=== PATIENT | female | born 1965 | race Caucasian/White ===

== ENCOUNTER 2024-04-23 15:03 | Inpatient (IN) | payer OTHER, SELFPAY ==
[2024-04-23] VITALS (13 sets, daily range): BP systolic 101–157; BP diastolic 65–89
--- NOTE | 2024-04-23 11:02 | ED.GENMED ---
History of Present Illness
General
Chief Complaint: Abdominal Symptoms
Source: patient
Exam Limitations: none
Time Seen by Provider: 04/23/24 10:53
History of Present Illness
History of Present Illness:
58yoF with a history of hypertension, hyperlipidemia, and recurrent diverticulitis s/p colon resection in 2010 presenting for evaluation of vomiting. Symptoms have been ongoing for the past 3 days. She has been unable to tolerate any p.o. intake
since her symptoms began. She denies any precipitating event, suspicious food intake, recent travel, or sick contacts. She has vomited 4 times so far today. She feels very dehydrated, lightheaded, and weak. She states she can feel her heart
beating in her chest but denies any chest pain or shortness of breath. She has only urinated once today and it looked very dark. No associated fevers, hematemesis, diarrhea, or abdominal pain.
Past History
Past History
ED Past Medical History: HTN and Hypercholesterolemia
ED Past Surgical History: Negative Cardiac
Social History
Tobacco: Smoker
Alcohol: Occasional
Drug: None
Personal:
Living: with family
Employment: Employed
Family History
Family History: Other (n/c)
Phy Exam
General Physical Exam
General Presentation: well appearing and no apparent distress
General age: appears stated age
General Skin: warm and dry
General Habitus: normal
General Mental: alert
ENT Exam
ENT Exam: normocephalic
Cardiovascular Exam
Cardiovascular Exam: regular rate/rhythm and no murmur
Pulmonary Exam
Pulmonary Exam: lungs clear, no respiratory distress, no rales, no crackles and no rhonchi
Gastrointestinal Exam
Gastrointestinal Exam: non tender, soft and non distended
Neurological Exam
Neurological Exam: alert
Dharmesh Coma Scale
Eye Opening: Spontaneous
Verbal Response: Oriented
Motor Response: Obeys Commands
GCS Total Score: 15
Skin Exam
Skin Exam: normal color and warm/dry
Psychiatric Exam
Psychiatric Exam: normal mood/affect
Course
Orders/Labs/Results
Orders:
Orders
04/23/24 11:01
0.9% Sodium Chloride 1000 ml [Nss] 1,000 ml IV BOLUS
Ondansetron Injectable [Zofran] 4 mg IV NOW STA
04/23/24 11:02
Electrocardiogram (*1) Urgent
Reason for Study: Palpitations
EKG- Treatment ONCE
04/23/24 11:12
Complete Blood Count/With Diff Urgent
Comprehensive Metabolic Panel Urgent
Hepatitis A IgM Antibody Urgent
Comment: ADD ON
Lipase Urgent
Magnesium Urgent
Troponin I Urgent
04/23/24 11:37
0.9% Sodium Chloride 1000 ml [Nss] 1,000 ml IV BOLUS
Potassium Chloride [KCl] 40 meq PO NOW STA
US Abdomen Complete/Upper Urgent
Comment:
Reason For Exam: vomiting, transaminitis
04/23/24 11:41
Add On- LAB Urgent
Tests Added?: Hep A IgM
04/23/24 11:51
COVID-19 Antigen Urgent
Source: Nasal Swab
Influenza A+B Rapid Molecular Urgent
MATT Source: Nasal Swab
Specimen Description:
04/23/24 14:15
Alcohol Routine
Urine Drug Abuse Screen Routine
Abnormal Lab Results
04/23/24
11:12
WBC 11.1 H 10^3/uL
(4.8-10.8)
RBC 4.03 L 10^6/uL
(4.20-5.40)
MCH 33.5 H pg
(27.0-31.0)
Abs Immat Gran (auto) 0.1 H 10^3/uL
(0-0.05)
Absolute Neuts (auto) 9.1 H 10^3/uL
(1.4-6.5)
Absolute Lymphs (auto) 0.9 L 10^3/uL
(1.2-3.4)
Absolute Monos (auto) 1.1 H 10^3/uL
(0.1-0.6)
Neutrophils % 81.7 H %
(42.2-75.2)
Lymphocytes % 7.8 L %
(20.5-51.1)
Monocytes % 9.6 H %
(1.7-9.3)
Sodium 131 L mmol/L
(135-145)
Potassium 3.3 L mmol/L
(3.5-5.1)
Chloride 80 L mmol/L
(98-107)
BUN 43 H mg/dl
(7-17)
Creatinine 1.1 H mg/dL
(0.6-1.0)
Glucose 121 H mg/dl
(70-99)
Total Bilirubin 3.7 H mg/dl
(0.2-1.3)
AST 190 H U/L
(14-36)
ALT 143 H U/L
(0-35)
Albumin 5.5 H g/dl
(3.5-5.0)
Lipase > 4000 H* U/L
(23-300)
04/23/24 11:12
04/23/24 11:12
Vital Signs
Initial and Last Documented VS:
Initial Vital Signs
Temp Pulse Resp BP Pulse Ox
98.4 F 85 18 153/89 97
04/23/24 10:23 04/23/24 10:23 04/23/24 10:23 04/23/24 10:23 04/23/24 10:23
Last Documented Vital Signs
Temp Pulse Resp BP Pulse Ox
98.4 F 77 18 112/65 99
02/19/25 10:23 04/23/24 13:15 04/23/24 13:15 04/23/24 13:11 04/23/24 13:15
MDM/Problems Addressed
Differential Diagnosis Includes:
58yoF here with n/v x 3 days. Also c/o feeling weak and lightheaded. No abdominal pain, diarrhea, or fevers. She is mildly hypertensive with otherwise normal vitals. She is non-toxic appearing. Abdominal exam is benign. Differential diagnosis
includes but is not limited to: viral illness, gastroenteritis, dehydration, MARELY
Initial ED plan: Check abdominal labs, magnesium, and troponin/EKG. Defer imaging given benign exam. IV Zofran and fluid bolus for symptoms.
*EKG
Interpreted by ED Provider?: Yes
EKG Intrepretation Date: 04/23/24
Heart Rate: 78
Rate: normal
Rhythm: sinus and PVC's
[place]: normal axis
Interval: other (QTc 487)
QRS Pattern: normal QRS
Ischemia: no ischemia
*Critical Care Note
Total Time (30-74mins, 75-104mins- exclusive of procedures): Not Applicable
Update Note
Update Note:
Labs reveal a lipase greater than 4000. Total bilirubin 3.7, AST 190, and ALT 143. Labs also show a potassium of 3.3 which was replaced, sodium 131, and chloride 80. Creatinine 1.1. Upper abdominal ultrasound obtained which is negative for
cholelithiasis. Pancreas not visualized due to bowel gas. She does report a history of alcohol abuse although states her last drink was 02/10/24. Additional fluid bolus ordered and patient admitted for further management.
ED Attending Note
-
Portions of this chart may have been created with voice recognition software.� Occasional wrong word or��sound alike� substitutions may have occurred due to the inherent limitations of voice recognition software.
Discharge Plan
Departure
Patient Disposition: Admit
Date of Disposition: 04/23/24
Time of Disposition: 13:15
Presentation/result/management discussed w/ accepting MD/DO: Hospitalist
Discharge Problem:
Acute pancreatitis, Nausea and vomiting, Transaminitis
Prescriptions:
No Action
atorvastatin [Lipitor] 40 mg Tablet
40 mg PO DAILY
lisinopril 20 mg Tablet
20 mg PO DAILY
cyanocobalamin (vitamin B-12) 1,000 mcg Tablet
1,000 mcg PO DAILY
Theragen Tablet
1 tab PO DAILY
propranolol 20 mg Tablet
20 mg PO DAILY
Patient Comments:
04/23/24-PATIENT DID NOT KNOW THE DIRECTION WERE BID, SHE ONLY BEEN TAKING IT DAILY
escitalopram oxalate [Lexapro] 10 mg Tablet
10 mg PO DAILY
cholecalciferol (vitamin D3) [Vitamin D3] 25 mcg (1,000 unit) Tablet
25 mcg PO DAILY
magnesium oxide 400 mg magnesium Tablet
400 mg PO DAILY
Referrals:
Charisse Pérez CRNP [Family Provider] -
Interventions
Interventions:
*Risk Screen - Suicide Last Done: 04/23/24 10:23
*General Assessment Last Done: 04/23/24 10:23
*Neglect/Abuse Screening Last Done: 04/23/24 10:23
*ED COVID-19 Vaccine History Last Done: 04/23/24 11:18
GI-Ndnqpn-Vdjvcigrza Assessment Last Done: 04/23/24 11:18
Discharge Date and Time
Print Language: OCCITAN
[2024-04-23] MEDS: NSS 1000 IV ×2 (11:13→11:46)
[2024-04-23] MEDS: ZOFRAN 4 MG IV (11:13)
[2024-04-23 11:22] LABS: % Basophils 0.3 % (0-2); % Eosinophils 0.1 % (0-6); % Immature Granulocytes 0.5 % (0-0.5); % Lymphocytes 7.8 % (20.5-51.1); % Monocytes 9.6 % (1.7-9.3); % Neutrophils 81.7 % (42.2-75.2); Absolute Immature Granulocytes 0.1 10^3/uL (0-0.05); Absolute Lymphocytes 0.9 10^3/uL (1.2-3.4); Absolute Monocytes 1.1 10^3/uL (0.1-0.6); Absolute Neutrophils 9.1 10^3/uL (1.4-6.5); Hematocrit 37.9 % (37.0-47.0); Hemoglobin 13.5 g/dL (12.0-16.0); Mean Corp Hgb Conc. 35.6 g/dL (33.0-37.0); Mean Corpuscular Hgb 33.5 pg (27.0-31.0); Mean Platelet Volume 9.8 fL (7.4-10.4); Nucleated Red Blood Cells % 0 %; Platelet Count 154 10^3/uL (130-400); Red Blood Cell Count 4.03 10^6/uL (4.20-5.40); Red Cell Dist. Width 12.3 % (11.5-14.5); White Blood Cell Count 11.1 10^3/uL (4.8-10.8)
[2024-04-23 11:35] LABS: ALT (SGPT) 143 U/L (0-35); AST (SGOT) 190 U/L (14-36); Albumin 5.5 g/dl (3.5-5.0); Alkaline Phosphatase 97 U/L (38-126); Blood Urea Nitrogen 43 mg/dl (7-17); Calcium 8.5 mg/dl (8.4-10.2); Carbon Dioxide 23 mmol/L (22-30); Chloride 80 mmol/L (98-107); Glucose 121 mg/dl (70-99); Magnesium 1.6 mg/dl (1.6-2.3); Potassium 3.3 mmol/L (3.5-5.1); Sodium 131 mmol/L (135-145); Total Bilirubin 3.7 mg/dl (0.2-1.3); Total Protein 7.5 g/dl (6.3-8.2); eGFR 57.88
[2024-04-23] MEDS: KCL 40 MEQ PO (11:46)
[2024-04-23 11:51] LABS: Troponin I < 0.012 ng/ml
[2024-04-23 12:15] LABS: COVID-19 Antigen Negative (Negative)
[2024-04-23 12:48] LABS: Lipase > 4000 U/L (23-300)
--- NOTE | 2024-04-23 14:44 | HPS.HSE ---
Family Physician
-
Family Physician: LATASHA Lux
Chief Complaint
-
Persistent nausea and vomiting
History of Present Illness
Patient is a 58-year-old female with history of hypertension and dyslipidemia who presents with rather acute onset of nausea and vomiting. Denies hematemesis. Patient denies any abdominal pain, diarrhea. She denies any fever or sick contacts.
Patient with history of alcohol use disorder who states being sober since February 10, 2024. She attends . She was prescribed Antabuse, although stopped taking it 2 weeks prior to presentation in addition patient denies any history of
hepatobiliary disease in the past. She complains of feeling generally weak, shaky, dehydrated with palpitations.
Medical History
Past Medical History
Past Medical History: Reports HTN and Hypercholesterolemia; Denies CAD, Cancer, CHF, COPD or NIDDM
Past Surgical History: Reports None
Social History
Tobacco: Smoker
Alcohol: Former
Drug: None
Personal:
Living: With Family
Family History
Family History: Not pertinent
Allergies / Home Medications
Allergies reflects when Allergies were last updated in [facility].
Home Medications with original date entered in [facility]
Allergy/Medication List:
Allergies
Allergy/AdvReac Type Severity Reaction Status Date / Time
No Known Allergies Allergy Verified 04/23/24 10:22
Home Medications
atorvastatin 40 mg tablet (Lipitor) 40 mg PO DAILY 04/23/24
cholecalciferol (vitamin D3) 25 mcg (1,000 unit) tablet (Vitamin D3) 25 mcg PO DAILY 04/23/24
cyanocobalamin (vitamin B-12) 1,000 mcg tablet 1,000 mcg PO DAILY 04/23/24
escitalopram oxalate 10 mg tablet (Lexapro) 10 mg PO DAILY 04/23/24
lisinopril 20 mg tablet 20 mg PO DAILY 04/23/24
magnesium oxide 400 mg PO DAILY 04/23/24
propranolol 20 mg tablet 20 mg PO DAILY 04/23/24
therapeutic multivitamin 1 tab PO DAILY 04/23/24
Review of Systems
-
A 12 point ROS was completed and negative except as noted: Yes
Physical Exam
Vital Signs
Vital Signs
Temp Pulse Resp BP Pulse Ox
98.4 F 77 18 112/65 99
04/23/24 10:23 04/23/24 13:15 04/23/24 13:15 04/23/24 13:11 04/23/24 13:15
Physical Exam
General: Well Developed, Well Nourished and No Apparent Distress
HEENT: NormoCephalic, Moist mucous membranes and Atraumatic
Respiratory: Clear
Cardiac: S1/S2 and Regular Rhythm; No Murmur or Rub
GI: Soft, Non Tender, Non Distended and Normal Bowel Sounds; No Organomegaly
Rectal: Deferred by Provider
Musculoskeletal: No Clubbing, No Cyanosis and No Edema
Skin: No Rash
Neuro: Awake, Alert, Oriented, AO x 3, Nonfocal/grossly intact and Other (Mild bilateral nonintentional upper extremity tremor)
Laboratory Results
-
04/23/24 11:12
04/23/24 11:12
Laboratory Results
Total Bilirubin 3.7 mg/dl (0.2-1.3) H 04/23/24 11:12
AST 190 U/L (14-36) H 04/23/24 11:12
ALT 143 U/L (0-35) H 04/23/24 11:12
Alkaline Phosphatase 97 U/L (38-126) 04/23/24 11:12
Troponin I < 0.012 ng/ml 04/23/24 11:12
Lipase > 4000 U/L (23-300) H* 04/23/24 11:12
Impression/Plan
-
IMPRESSION:
58 years old female with history of hypertension dyslipidemia, alcohol use disorder who states being sober from February 2024 presents with rather acute onset of nausea, vomiting.
Elevated LFTs mixed pattern with hyperbilirubinemia and elevated transaminases.
Elevated lipase
Hypovolemic hyponatremia
Elevated anion gap metabolic acidosis with contraction alkalosis
Hypokalemia
Palpitations
Other conditions:
Essential hypertension
Dyslipidemia (
PLAN:
Acute onset of nausea and vomiting.
Elevated LFTs mixed pattern.
Elevated lipase with no abdominal pain suggesting against acute pancreatitis.
Ultrasound of the abdomen with fatty liver, although with no evidence of acute gallbladder disease or biliary obstruction.
Patient claims being sober since February 2024
Differential diagnosis acute hepatitis including viral, less likely alcohol induced given plan sobriety, acute cholecystitis, less likely biliary colic with no evidence of pain upon presentation, acute gallstone pancreatitis
Follow LFT.
IV hydration
Clear liquid diet
If remains elevated, consider further imaging including MRI/MRCP.
GI consultation
Hold statin
Dehydration with increased anion gap metabolic acidosis and contraction alkalosis
Check serum acetone level
Hypovolemic hyponatremia. Hypokalemia
Clear liquid diet
Lactated Ringers
Replete potassium
Check magnesium
Follow BMP and replete electrolytes closely
Alcohol use disorder baseline claims sobriety since February 10, 2024
Had been on dual sputum discontinued weeks prior to admission
Exam with upper extremity tremor and flushed skin.
Check alcohol arrival
Urine drug screen.
Serum acetone.
Initiate alcohol withdrawal protocol with MSAS
Thiamine
Palpitations without chest pain
ECG normal sinus rhythm with occasional PVC. QT 428 ms.
front desk monitor
Check TSH
Continue beta-jo ann
Essential hypertension
Continue beta-jo ann. Hold MED given dehydration
Depression continue Lexapro
--- NOTE | 2024-04-23 15:35 | CON.GI ---
Addendum entered and electronically signed by Yue John Do, MD 04/23/24 17:25:
I personally performed a history and physical exam of the patient and discussed management with the resident. I reviewed the resident's note and agree with the documented findings and plan of care HPI/CC.
Jeff is a 58yo W with h/o HTN, colon resection in 2010 for diverticulitis and ETOH abuse who presents with nausea/vomiting without abd pain. She denies issues in past. No sick contacts new meds or change in diet. Vitals reviewed. exam older
than stated age, NTTP, NABS. dry mucous membranes. Labs reviewed lipase >4000
Impression
- Nausea/vomiting
In setting of lipase >4000 suggestive of evolving pancreatitis
Other ddx is ETOH hepatitis or gastritis
- ETOH abuse
- HTN
- Colonic resection for diverticulitis 2010
- HN
- Hyperlipidemia
Recommendations
- Discussed MRI but she declines due to claustrophobia
- Plan for CT Abdomen with IV contrast to better eval pancreas
- ETOH cessation
- LR bolus 1L x1 now
- IVF at 200ml/hr
- Anti emetics
- protonix daily
- Miralax for constipation
Will follow with you
Original Note:
Consultation
-
Date/Time Consultation Requested: 04/23/2024
Date/Time Consultation Performed: 04/23/2024
Requesting Provider: Jenna Kahn MD
Performing Provider: Lizzette Lemons MD
Reason for Consultation: Transaminitis
Medical History
Chief Complaint / HPI
Chief Complaint: Vomiting
History of Present Illness:
The patient is a 58 year old female with a PMH of HTN, HLD, recurrent diverticulosis s/p colon resection in 2010 and alcohol use disorder for 20 years who presented to ER today complaining from 3 day duration of vomiting and nausea. The patient
reported she started to have throw up on Sunday and kept throwing 2-4 times daily since then. The patient denies symptoms including abdominal pain,chest pain, heartburn, hematemesis, diarrhea, dark-colored stools. She denied any sick contacts,
eating from outside, traveling out of the state and taking a new medication.Her recent new medication was Antabuse which she stopped taking last month.She denied any history of hepatobiliary disease in the past. At the beginning of the visit, the
patient denied relapsing drinking alcohol and being in rehab in September 05 2023 and reported stopped drinking alcohol since February 2024. When the risk of alcohol withdrawal was discussed, the patient reported she relapsed drinking and her last
drinking was on this weekend. The patient did not want to give the information about the amount of the her consuming alcohol.
Past Medical History
Past Medical History: HTN and Other (HLD, Recurrent diverticulosis with s/p colon resection in 2010, alcohol use disorder )
Past Surgical History: Other (Recurrent diverticulosis with s/p colon resection in 2010)
Social History
Tobacco: Smoker
Alcohol: Other (has alcohol use disorder )
Drug: None
Personal:
Living: With Family
Family History
Family History: Reviewed & Not Pertinent (No hx of hepatobiliary disease )
Allergies / Home Medications
Allergy/AdvReac Type Severity Reaction Status Date / Time
No Known Allergies Allergy Verified 04/23/24 10:22
�Medication �Instructions �Recorded
atorvastatin 40 mg tablet (Lipitor) 40 mg PO DAILY 04/23/24
cholecalciferol (vitamin D3) 25 25 mcg PO DAILY 04/23/24
mcg (1,000 unit) tablet (Vitamin
D3)
cyanocobalamin (vitamin B-12) 1,000 mcg PO DAILY 04/23/24
1,000 mcg tablet
escitalopram oxalate 10 mg tablet 10 mg PO DAILY 04/23/24
(Lexapro)
lisinopril 20 mg tablet 20 mg PO DAILY 04/23/24
magnesium oxide 400 mg PO DAILY 04/23/24
propranolol 20 mg tablet 20 mg PO DAILY 04/23/24
therapeutic multivitamin 1 tab PO DAILY 04/23/24
Review of Systems
-
History Source: Patient
Constitutional: Reports No Symptoms
EENT: Reports No Symptoms
Respiratory: Reports No Symptoms
Cardiac: Reports No Symptoms
Abdomen/GI: Reports Nausea and Vomiting
: Reports No Symptoms
Musculoskeletal: Reports No Symptoms
Skin: Reports No Symptoms
Neurological: Reports No Symptoms
Vital Signs
Temp Pulse Resp BP Pulse Ox
98.4 F 77 18 112/65 99
04/23/24 10:23 04/23/24 13:15 04/23/24 13:15 04/23/24 13:11 04/23/24 13:15
Physical Exam
Exam
General: Well Developed and Well Nourished
HEENT: Normocephalic and Anicteric
Respiratory: Clear
Cardiac: S1/S2 and Regular Rhythm
Breast: Deferred by me
GI: Soft, Non Tender and Non Distended
Musculoskeletal: No Clubbing, No Cyanosis and No Edema
Skin: Warm and Dry
Neuro: Awake, Alert, Oriented and AO x 3
Psych: Calm
Results
WBC 11.1 10^3/uL (4.8-10.8) H 04/23/24 11:12
Hgb 13.5 g/dL (12.0-16.0) 04/23/24 11:12
Hct 37.9 % (37.0-47.0) 04/23/24 11:12
MCV 94.0 fL (81.0-99.0) 04/23/24 11:12
Plt Count 154 10^3/uL (130-400) 04/23/24 11:12
Absolute Neuts (auto) 9.1 10^3/uL (1.4-6.5) H 04/23/24 11:12
Sodium 131 mmol/L (135-145) L 04/23/24 11:12
Potassium 3.3 mmol/L (3.5-5.1) L 04/23/24 11:12
Chloride 80 mmol/L (98-107) L 04/23/24 11:12
Carbon Dioxide 23 mmol/L (22-30) 04/23/24 11:12
BUN 43 mg/dl (7-17) H 04/23/24 11:12
Creatinine 1.1 mg/dL (0.6-1.0) H 04/23/24 11:12
Calcium 8.5 mg/dl (8.4-10.2) 04/23/24 11:12
Total Bilirubin 3.7 mg/dl (0.2-1.3) H 04/23/24 11:12
AST 190 U/L (14-36) H 04/23/24 11:12
ALT 143 U/L (0-35) H 04/23/24 11:12
Alkaline Phosphatase 97 U/L (38-126) 04/23/24 11:12
Lipase > 4000 U/L (23-300) H* 04/23/24 11:12
Hepatitis A IgM Ab Cancelled 04/23/24 11:39
Diagnostic Image Results:
ABD US:
IMPRESSION: Hepatic fatty infiltration
Mild hepatomegaly
Nonvisualization of the pancreas secondary to overlying bowel gas
Prior GI Procedures: No known
EGD:
Colonoscopy:
Assessment / Plan
-
Assessment: 58- year-old female presented to ER complaining from 3 days duration of non-bloody vomiting The patient`s denied any other symptoms including abdominal pain. Her abdominal US was not significant for any acute abdominal problem and only
showed a fatty liver. Her lab results showed elevated Lipase over 4000, AST to 190, ALT to 143 and TB 3.7. The patient reported being noticed in the past about having elevated LFT levels, but did not have a follow up with any physician for that
reason. She does not remember details. Denies any associated abdominal pain and did not have any pain during physical exam. The patient admitted that she has been still drinking alcohol and her last consuming alcohol was this weekend.She did not
want to talk abut her usual amount of drinking alcohol, but reported that she drunk a whole bottle of vodka on Sunday or Sunday.
Impression
Vomiting and Nausea secondary to alcohol use disorder vs pancreatitis vs gastroenteritis
Elevated lipase
Transaminitis with cholestatic pattern with elevated TB
Alcohol Use Disorder-on MSAS protocol
Elevated anion gap metabolic acidosis with contraction alkalosis
Hypokalemia
#Vomiting and Nausea: likely multifactorial secondary to alcohol use disorder vs pancreatitis vs gastroenteritis
-Abd US: No evidence of acute gallbladder disease or biliary obstruction/ only fatty liver
-MRI/MRCP was ordered
-LR open wided at 200 ml/h due a possibility of pancreatitis
-Pain management if needed
-NPO for now until MRI/MRCP ruled out pancreatitis
-On MSAS protocol
-Follow up BMP and LFTs, TB daily
Thanks Dr Giron involving me in this patient`s care. GI team will follow up the patient.
-
-
Thank you for consultation and allowing me to participate in the patient's care. Please call the console manager GI physician during the after hours with any questions or concerns.
--- NOTE | 2024-04-23 17:50 | PTCARENOTE ---
Received pt from ED via stretcher. Pt ambulated to bed independently. AAOx3. No complaints of pain. Assessed and oriented to room. Call carrillo within close reach.
[2024-04-23 18:12] LABS: INR 0.93
[2024-04-23 18:13] LABS: APTT 27.5 Sec (23.4-35.0)
[2024-04-23] MEDS: INDERAL 20 MG PO (18:14)
[2024-04-23] MEDS: MIRALAX 17 GRAMS PO (18:14)
[2024-04-23] MEDS: PROTONIX IV 40 MG IV (18:17)
[2024-04-23] MEDS: HEPARIN 5000 UNITS SC (18:18)
[2024-04-23] MEDS: LR 1000 IV ×2 (18:18→20:23)
[2024-04-23] MEDS: NSS (PRESERVATIVE FREE) 10 ML IV (18:18)
[2024-04-23] MEDS: FOLVITE 1 MG PO (18:18)
[2024-04-23 18:20] LABS: GGTP 171 U/L (12-43); Phosphorus 1.6 mg/dl (2.5-4.5)
[2024-04-23 18:23] LABS: Alcohol None Detected
[2024-04-23 18:26] LABS: B-Hydroxybutyrate > 6.00 mmol/L (0.02-0.27)
[2024-04-23 18:27] LABS: Troponin I < 0.012 ng/ml
[2024-04-23] MEDS: THIAMINE INJECTION 200 MG IV (20:24)
[2024-04-23 20:40] LABS: Urine Albumin 2+ (Neg - Trace); Urine Bilirubin Negative (Negative); Urine Character Clear (Clear); Urine Color Yellow; Urine Glucose Negative (Negative); Urine Ketone 3+ (Negative); Urine Leukocyte Negative (Negative); Urine Nitrite Negative (Negative); Urine Occult Blood 1+ (Negative); Urine Specific Gravity 1.015 (<1.030); Urine Urobilinogen 1+ (Neg - 1+)
[2024-04-23 20:53] LABS: Amphetamines Negative (Negative); Barbiturates Negative (Negative); Benzodiazepines Negative (Negative); Buprenorphine Negative (Negative); Cocaine Negative (Negative); Marijuana Negative (Negative); Methadone Negative (Negative); Methamphetamines Negative (Negative); Opiates Negative (Negative); Phencyclidine Negative (Negative); Tricyclic Antidepressants Negative (Negative)
[2024-04-23 21:09] LABS: Urine Squamous Cell >30 /LPF (Few)
[2024-04-24] MEDS: HEPARIN SC (01:20)
[2024-04-24 03:00] VITALS: BP 132/80
[2024-04-24 06:13] LABS: Troponin I 0.016 ng/ml
[2024-04-24 06:34] LABS: % Basophils 0.5 % (0-2); % Eosinophils 1.1 % (0-6); % Immature Granulocytes 1.1 % (0-0.5); % Lymphocytes 17.2 % (20.5-51.1); % Monocytes 13.9 % (1.7-9.3); % Neutrophils 66.2 % (42.2-75.2); Absolute Eosinophils 0.1 10^3/uL (0-0.7); Absolute Immature Granulocytes 0.1 10^3/uL (0-0.05); Absolute Lymphocytes 1.1 10^3/uL (1.2-3.4); Absolute Monocytes 0.9 10^3/uL (0.1-0.6); Absolute Neutrophils 4.1 10^3/uL (1.4-6.5); Hematocrit 33.5 % (37.0-47.0); Hemoglobin 11.4 g/dL (12.0-16.0); Mean Corpuscular Hgb 33.1 pg (27.0-31.0); Mean Corpuscular Volume 97.4 fL (81.0-99.0); Mean Platelet Volume 10.4 fL (7.4-10.4); Nucleated Red Blood Cells % 0 %; Platelet Count 102 10^3/uL (130-400); Red Blood Cell Count 3.44 10^6/uL (4.20-5.40); Red Cell Dist. Width 12.2 % (11.5-14.5); White Blood Cell Count 6.2 10^3/uL (4.8-10.8)
[2024-04-24 06:46] LABS: ALT (SGPT) 102 U/L (0-35); AST (SGOT) 128 U/L (14-36); Albumin 3.7 g/dl (3.5-5.0); Alkaline Phosphatase 70 U/L (38-126); Blood Urea Nitrogen 19 mg/dl (7-17); Calcium 8.2 mg/dl (8.4-10.2); Carbon Dioxide 25 mmol/L (22-30); Chloride 93 mmol/L (98-107); Glucose 88 mg/dl (70-99); Lipase 1135 U/L (23-300); Potassium 3.9 mmol/L (3.5-5.1); Sodium 134 mmol/L (135-145); Total Bilirubin 2.6 mg/dl (0.2-1.3); Total Protein 5.7 g/dl (6.3-8.2); eGFR > 60.00
[2024-04-24] MEDS: LR 1000 IV ×2 (07:13→11:00)
[2024-04-24 07:23] VITALS: BP 150/80
--- NOTE | 2024-04-24 08:25 | W.PN.GI.CBS2 ---
Addendum entered and electronically signed by Yue John Do, MD 04/24/24 14:40:
I saw and evaluated the patient. I reviewed the resident�s note and agree with findings and plan as documented in the resident�s note.
Shauna ate 60% of regular low fat diet. No further nausea/vomiting. NO abd pain. Vitals stable. She is ambulating room without issue. Labs reviewed downtrending CT AP with duodenitis and chronic pancreatitis
Recommendations
- C/w low fat diet tolerating
- She is ambulating without issue
- C/w PPI
- ETOH cessation
- Would benefit from OP fibroscan for fatty liver
At this juncture ok from GI perspective for hosp d/c. Above d/w hospitalist. GI will sign off please call for ?
Original Note:
Today's Communication / Plan
-
-Abd CT is pending
-Clear Liquid diet ordered
-Follow up AST,ALT, TB and Lipase levels daily
Assessment / Plan
-
Assessment: 58- year-old female presented to ER on 04/23/24 complaining from 3 days duration of non-bloody vomiting The patient`s denied any other symptoms including abdominal pain. Her abdominal US was not significant for any acute abdominal
problem and only showed a fatty liver. Her admission lab results showed elevated Lipase over 4000, AST to 190, ALT to 143 and TB 3.7. The patient reported being noticed in the past about having elevated LFT levels, but did not have a follow up with
any physician for that reason. She does not remember details. Denies any associated abdominal pain. The patient admitted that she has been still drinking alcohol and her last consuming alcohol was this weekend. MRI/MRCP was ordered for the patient
but patient did not admit having it due claustrophobia. Therefore an Abd CT with contrast was ordered. On today`s visit denies abdominal pain and nausea. but reports having 3 episodes of diarrhea which started yesterday night. Today`s lab results
showed improvement with AST decreased to 128, ALT to 102 and TB to 2.6 and Lipase to 1135.
Impression
Vomiting and Nausea secondary to alcohol use disorder vs pancreatitis vs gastroenteritis
Elevated lipase
Transaminitis with cholestatic pattern with elevated TB
Alcohol Use Disorder-on MSAS protocol
Elevated anion gap metabolic acidosis with contraction alkalosis
Hypokalemia
#Vomiting and Nausea: likely multifactorial secondary to alcohol use disorder vs pancreatitis vs gastroenteritis
-Abd US: No evidence of acute gallbladder disease or biliary obstruction/ only fatty liver
- Abd CT on 04/24: showed duodenitis/ Minor sequela of chronic pancreatitis. No acute pancreatic inflammatory changes/Severe fatty infiltration of liver./ Mild diverticulosis without acute diverticulitis.
-Continue IV fluids
-Antiemetic if needed
-Continue Protonix
-On MSAS protocol
-Alcohol Use Disorder:ETOH cessation
-Lab results shows improvement with AST, ALT and TB levels: Follow up BMP, CBC and LFTs, TB daily
-Clear liquid diet was ordered-it can be advanced if the patient can tolerate it
Thanks Dr Giron involving me in this patient`s care. GI team will follow up the patient.
Subjective
Subjective
Date of Service: April 24,
The patient was seen in her bed reporting feeling better. She denied abdominal pain and feeling nauseous, but developing watery diarrhea since yesterday night and had 3 episodes of diarrhea.
Objective
Data Reviewed
Laboratory Data:
Laboratory Results
04/24/24 05:28
04/24/24 05:28
Laboratory Results
PT 13.0 Sec (11.4-14.6) 04/23/24 17:54
INR 0.93 04/23/24 17:54
APTT 27.5 Sec (23.4-35.0) 04/23/24 17:54
Phosphorus 1.6 mg/dl (2.5-4.5) L 04/23/24 17:54
Phosphorus Cancelled 04/23/24 17:54
Magnesium 1.6 mg/dl (1.6-2.3) 04/23/24 11:12
Total Bilirubin 2.6 mg/dl (0.2-1.3) H 04/24/24 05:28
AST 128 U/L (14-36) H 04/24/24 05:28
ALT 102 U/L (0-35) H 04/24/24 05:28
Alkaline Phosphatase 70 U/L (38-126) 04/24/24 05:28
Lipase 1135 U/L (23-300) H* 04/24/24 05:28
Vital Signs and I&O:
Vital Signs
Temp Pulse Resp BP Pulse Ox
98.7 F 68 17 150/80 98
04/24/24 07:23 04/24/24 07:23 04/24/24 07:23 04/24/24 07:23 04/24/24 07:23
I&O
04/23/24 04/24/24 04/25/24
06:59 06:59 06:59
Intake Total 1110 / 1110
Balance 1110 / 1110
Physical Exam
Physical Exam
HEENT: Anicteric and Moist mucous membranes
Cardiology: Normal Sinus Rhythm, S1 and S2
Pulmonary: Clear
GI: Soft, Non Distended and Non Tender
Extremities: No Edema and Warm
Neuro: Non Focal
[2024-04-24] MEDS: NSS (PRESERVATIVE FREE) 10 ML IV (08:52)
[2024-04-24] MEDS: PROTONIX IV 40 MG IV (08:53)
[2024-04-24] MEDS: INDERAL 20 MG PO (08:53)
[2024-04-24] MEDS: FOLVITE 1 MG PO (08:53)
[2024-04-24] MEDS: MAG-TAB SR 84 MG PO (08:53)
[2024-04-24] MEDS: THIAMINE INJECTION 200 MG IV ×2 (08:53→21:22)
[2024-04-24] MEDS: HEPARIN 5000 UNITS SC ×2 (08:53→15:28)
[2024-04-24] MEDS: MIRALAX PO (08:54)
[2024-04-24] MEDS: LEXAPRO 10 MG PO (08:54)
[2024-04-24 11:07] VITALS: BP 163/78
[2024-04-24] MEDS: CARAFATE 1 GRAM PO ×3 (13:07→21:22)
--- NOTE | 2024-04-24 13:13 | CM ---
Patient seen at bedside. Patient states that she has to be discharged later so that she can go to work tomorrow. Patient lives with her in a 2 story home. Patient PCP is Dr. Pérez and she uses the [facility] in [place] for Pharmacy needs.
Patient does not have any DME at home. CM will continue to follow for discharge planning needs.
Plan; home with no needs anticipated.
[2024-04-24 15:08] VITALS: BP 155/80
--- NOTE | 2024-04-24 15:15 | W.PN.HOSP.TC ---
Today's Communication/Plan
-
Advance diet
Continue PPI.
Wean off IV fluids
Continue alcohol withdrawal protocol
Continue thiamine.
Assessment / Plan
Assessment / Plan
IMPRESSION:
58 years old female with history of hypertension dyslipidemia, alcohol use disorder who states being sober from February 2024 presents with rather acute onset of nausea, vomiting.
Alcohol use disorder severe with ongoing use. Patient admitted last alcohol consumption 2 days prior to presentation
Acute duodenitis with nausea vomiting
Elevated LFTs mixed pattern with hyperbilirubinemia and elevated transaminases in the pattern of alcoholic hepatitis
Elevated lipase secondary to duodenitis
Hypovolemic hyponatremia
Elevated anion gap metabolic acidosis with contraction alkalosis
Hypokalemia
Palpitations
Other conditions:
Essential hypertension
Dyslipidemia (
PLAN:
Acute duodenitis
Acute alcohol induced hepatitis.
Elevated lipase secondary to duodenitis with no clinical picture of pancreatitis.
All improving with initiation of IV fluids, antiemetics and IV PPI
Advance diet and monitor
Dehydration with increased anion gap metabolic acidosis and contraction alkalosis
Alcoholic ketoacidosis
Hypovolemic hyponatremia. Hypokalemia
All improving with IV hydration
Diet has been advanced
Wean off IV fluids
Alcohol use disorder, ongoing with last alcohol consumption to 3 days prior to presentation
Continue alcohol withdrawal protocol
Continue IV thiamine
Tobacco use disorder
Nicotine patch
Palpitations without chest pain
ECG normal sinus rhythm with occasional PVC. QT 428 ms.
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
TSH within normal limits
Continue beta-jo ann
Essential hypertension
Continue beta-jo ann. Resume MED inhibitor
Depression continue Lexapro
Anticipated Discharge: Within 24 hours
Subjective/Interval History
-
Date of Service: April 24, 2024
Objective Data
-
Labs:
Laboratory Results
04/24/24
05:28
WBC 6.2
Hgb 11.4 L
Hct 33.5 L
Plt Count 102 L D
Sodium 134 L
Potassium 3.9
Chloride 93 L
Carbon Dioxide 25
BUN 19 H
Creatinine 0.7
Glucose 88
Calcium 8.2 L
Total Bilirubin 2.6 H
AST 128 H
ALT 102 H
Alkaline Phosphatase 70
Vital Signs:
Vital Signs
Temp Pulse Resp BP Pulse Ox
98.2 F 68 16 155/80 97
04/24/24 15:08 04/24/24 15:08 04/24/24 15:08 04/24/24 15:08 04/24/24 15:08
I&O
04/23/24 04/24/24 04/25/24
06:59 06:59 06:59
Intake Total 1110 / 1110
Balance 1110 / 1110
Physical Exam
-
General: Well Developed and No Apparent Distress
HEENT: Normocephalic, Atraumatic and Moist Mucous Membranes
Respiratory: Clear to Auscultation
Cardiac: Regular Rhythm and S1/S2; Negative Murmur, Rub or Gallop
GI: Soft, Nontender, Nondistended and Normal Bowel Sounds; Negative Organomegaly
Rectal: Deferred by Provider
Musculoskeletal: No Clubbing, No Cyanosis and No Edema
Skin: Negative Rash
Neuro: Nonfocal/Grossly Intact
[2024-04-24] MEDS: NICODERM TRANSDERMAL 14 MG TRANSDERM (15:29)
[2024-04-24] MEDS: ZESTRIL 20 MG PO (15:29)
--- NOTE | 2024-04-24 15:39 | PTCARENOTE ---
Pt informed this RN she is going to leave unit to smoke outside. Pt informed she is unable to do that unless she signed out AMA. Pt increasingly agitated and stated 'are you kidding me'. made aware, new order provided, see MAR.
[2024-04-24 18:53] LABS: Hepatitis A IgM Antibody Negative (Negative)
[2024-04-24 19:38] VITALS: BP 165/100
[2024-04-24] MEDS: MELATONIN 5 MG PO (21:22)
[2024-04-24 23:40] VITALS: BP 154/76
[2024-04-25] MEDS: HEPARIN SC (01:24)
[2024-04-25 03:38] VITALS: BP 130/98
[2024-04-25 05:46] LABS: % Basophils 0.5 % (0-2); % Eosinophils 1.5 % (0-6); % Lymphocytes 18.8 % (20.5-51.1); % Neutrophils 64.2 % (42.2-75.2); Absolute Eosinophils 0.1 10^3/uL (0-0.7); Absolute Immature Granulocytes 0.1 10^3/uL (0-0.05); Absolute Lymphocytes 1.1 10^3/uL (1.2-3.4); Absolute Monocytes 0.9 10^3/uL (0.1-0.6); Absolute Neutrophils 3.9 10^3/uL (1.4-6.5); Hematocrit 34.3 % (37.0-47.0); Hemoglobin 12.1 g/dL (12.0-16.0); Mean Corp Hgb Conc. 35.3 g/dL (33.0-37.0); Mean Corpuscular Hgb 33.4 pg (27.0-31.0); Mean Corpuscular Volume 94.8 fL (81.0-99.0); Mean Platelet Volume 10.5 fL (7.4-10.4); Nucleated Red Blood Cells % 0 %; Platelet Count 106 10^3/uL (130-400); Red Blood Cell Count 3.62 10^6/uL (4.20-5.40); Red Cell Dist. Width 11.9 % (11.5-14.5); White Blood Cell Count 6.1 10^3/uL (4.8-10.8)
[2024-04-25 06:13] LABS: ALT (SGPT) 118 U/L (0-35); AST (SGOT) 217 U/L (14-36); Albumin 3.8 g/dl (3.5-5.0); Alkaline Phosphatase 69 U/L (38-126); Blood Urea Nitrogen 8 mg/dl (7-17); Carbon Dioxide 31 mmol/L (22-30); Chloride 90 mmol/L (98-107); Glucose 93 mg/dl (70-99); Potassium 3.2 mmol/L (3.5-5.1); Sodium 134 mmol/L (135-145); Total Bilirubin 2.9 mg/dl (0.2-1.3); Total Protein 5.9 g/dl (6.3-8.2); eGFR > 60.00
[2024-04-25 07:34] VITALS: BP 145/86
[2024-04-25] MEDS: MIRALAX 17 GRAMS PO (09:05)
[2024-04-25] MEDS: CARAFATE 1 GRAM PO ×2 (09:05→12:03)
[2024-04-25] MEDS: INDERAL 20 MG PO (09:05)
[2024-04-25] MEDS: MAG-TAB SR 84 MG PO (09:05)
[2024-04-25] MEDS: LEXAPRO 10 MG PO (09:06)
[2024-04-25] MEDS: FOLVITE 1 MG PO (09:06)
[2024-04-25] MEDS: NSS (PRESERVATIVE FREE) 10 ML IV (09:07)
[2024-04-25] MEDS: NICODERM TRANSDERMAL 14 MG TRANSDERM (09:07)
[2024-04-25] MEDS: HEPARIN 5000 UNITS SC (09:07)
[2024-04-25] MEDS: PROTONIX IV 40 MG IV (09:08)
[2024-04-25] MEDS: THIAMINE INJECTION 200 MG IV (09:09)
[2024-04-25] MEDS: ZESTRIL 20 MG PO (09:09)
--- NOTE | 2024-04-25 11:04 | CM ---
Patient seen at bedside today. Patient plan is for discharge home today. CM will continue to follow for discharge planning needs.
Plan; home with no needs.
[2024-04-25 11:06] VITALS: BP 143/94
--- NOTE | 2024-04-25 11:59 | W.DS.TRANS ---
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
-
Discharge Instructions:
Discharge Diagnosis/Procedures Alcohol use disorder
Alcoholic ketoacidosis
Dehydration
Duodenitis
Diet Regular
Instructions:
Stand-Alone Forms:
Changes to Home Medications: Yes
Discharge Medications:
DC Medications w/original date entered in [employer]
atorvastatin 40 mg tablet (Lipitor) 40 mg PO DAILY High Cholesterol 04/23/24
cholecalciferol (vitamin D3) 25 mcg (1,000 unit) tablet (Vitamin D3) 25 mcg PO DAILY Supplement 04/23/24
cyanocobalamin (vitamin B-12) 1,000 mcg tablet 1,000 mcg PO DAILY Supplement 04/23/24
escitalopram oxalate 10 mg tablet (Lexapro) 10 mg PO DAILY depression/anxiety 04/23/24
lisinopril 20 mg tablet 20 mg PO DAILY Blood Pressure 04/23/24
magnesium oxide 400 mg PO DAILY Supplement 04/23/24
propranolol 20 mg tablet 20 mg PO DAILY Blood Pressure 04/23/24
therapeutic multivitamin 1 tab PO DAILY Supplement 04/23/24
pantoprazole 40 mg tablet,delayed release (Protonix) 40 mg PO DAILY #30 tabs 04/25/24
Home Medication Changes
Protonix added
Pending Results: No
[2024-04-25] MEDS: KCL 40 MEQ PO (12:03)
== END 2024-04-25 13:54 | disposition home or self-care (01) | DRG 433 ==
LOC: 3 WEST ACU 15:03
PROVIDERS: Physician Assistant; ADMITTING PHYSICIAN Internal Medicine; CONSULT PHYSICIAN Internal Medicine Gastroenterology; EMERGENCY PHYSICIAN Emergency Medicine; FAMILY PHYSICIAN Nurse Practitioner Primary Care
DX: K70.10 Alcoholic hepatitis without ascites (principal); E87.1 Hypo-osmolality and hyponatremia; E87.4 Mixed disorder of acid-base balance; F10.20 Alcohol dependence, uncomplicated; K29.80 Duodenitis without bleeding; I10 Essential (primary) hypertension; E78.00 Pure hypercholesterolemia, unspecified; F17.200 Nicotine dependence, unspecified, uncomplicated; K76.0 Fatty (change of) liver, not elsewhere classified; F41.9 Anxiety disorder, unspecified; F40.240 Claustrophobia; E86.1 Hypovolemia; E87.6 Hypokalemia; R79.89 Other specified abnormal findings of blood chemistry; F32.A Depression, unspecified; E86.0 Dehydration; I49.3 Ventricular premature depolarization; Z90.49 Acquired absence of other specified parts of digestive tract; Z87.19 Personal history of other diseases of the digestive system
CPT/HCPCS: 74178; 76700; 80053; 80306; 81003; 81015; 82010; 82077; 82977; 83690; 83735; 84100; 84443; 84484; 85025; 85610; 85730; 86709; 87502; 87811; 93005; 96361; 96374; 99285; 99406; Q9967

== ENCOUNTER 2024-11-05 21:35 | Inpatient (IN) | payer OTHER, SELFPAY ==
[2024-11-05] VITALS (7 sets, daily range): BP systolic 122–150; BP diastolic 61–83; BMI 23.4
[2024-11-05 16:04] LABS: Hematocrit 42.3 % (37.0-47.0); Hemoglobin 14.7 g/dL (12.0-16.0); Mean Corp Hgb Conc. 34.8 g/dL (33.0-37.0); Mean Corpuscular Volume 99.8 fL (81.0-99.0); Nucleated Red Blood Cells % 0 %; Platelet Count 199 10^3/uL (130-400); Red Cell Dist. Width 12.3 % (11.5-14.5)
[2024-11-05 16:17] LABS: ALT (SGPT) 101 U/L (0-35); AST (SGOT) 204 U/L (14-36); Albumin 5.8 g/dl (3.5-5.0); Alkaline Phosphatase 117 U/L (38-126); Blood Urea Nitrogen 30 mg/dl (7-17); Calcium 8.3 mg/dl (8.4-10.2); Carbon Dioxide 7 mmol/L (22-30); Chloride 84 mmol/L (98-107); Glucose 220 mg/dl (70-99); Lipase 1401 U/L (23-300); Potassium 4.0 mmol/L (3.5-5.1); Sodium 131 mmol/L (135-145); Total Protein 8.2 g/dl (6.3-8.2); eGFR 36.69
--- NOTE | 2024-11-05 17:43 | ED.GENMED ---
History of Present Illness
General
Chief Complaint: Abdominal Symptoms
Source: patient
Exam Limitations: none
Time Seen by Provider: 11/05/24 17:43
Nursing documentation reviewed up to this point in time: agreed with
History of Present Illness
History of Present Illness:
59-year-old female with history of HTN, HLD, colon resection presents for vomiting past s days, not eating, can't hold anything down, today dizzy, weak, had to crawl up steps and 'by 3 p.m. my breathing got so shallow.' Denies pain. Hx alcoholism,
in and out of , drinking off and on, was drinking '3-4 swigs of vodka' after work for 10 days recently, last drink was 3 days ago. Denies any withdrawal symptoms. Not interested in [facility] at this time as she has a sponser at she will contact.
Past History
Past History
ED Past Medical History: HTN, Hypercholesterolemia and Psychiatric (Takes Escitalopram 10 mg OD)
ED Past Surgical History: Bowel resection (for diverticulitis)
Social History
Tobacco: Smoker
Alcohol: Chronic alcoholic
Drug: None
Personal:
Living: with family
Employment: Employed
Family History
Family History: Other (n/c)
Review of Systems
Review of Systems
Allergies reviewed?: Yes
All Other Systems: ROS reviewed and negative except as documented in HPI and ROS
Phy Exam
Physical Exam
Physical Exam:
GENERAL: No acute distress. A&Ox3.
CONSTITUTIONAL: Afebrile.
EYES: clear, conjunctivae normal
ENMT: moist mucus membranes, Pharynx nl
RESPIRATORY: Regular respirations, nonlabored, lungs clear.
CARDIOVASCULAR: Regular rate and rhythm, tachycardic at 126, no murmurs, no rubs.
GI: Soft, nontender, hypoactive BS
MUSCULOSKELETAL: Moves with ease. Well perfused.
SKIN: Warm, dry, pink
PSYCH: Normal mood and affect. Well kept, interactive and appropriate
NEUROLOGIC: Awake, alert and oriented. No focal neurological deficits
Course
Orders/Labs/Results
Orders:
Orders
11/05/24 Dinner
NPO
Allow oral meds: Yes
Allow clear liquids: No
NPO with Ice Chips: No
11/05/24 15:43
Electrocardiogram (*1) Urgent
Reason for Study: Abdominal Pain
EKG- Treatment ONCE
IV Insert/Care/Rem.- Treatment PRN
11/05/24 15:53
Complete Blood Count/With Diff Urgent
Comprehensive Metabolic Panel Urgent
GGTP Urgent
Comment: ADDED
Glycohemoglobin (HgbA1c) Urgent
Lipase Urgent
11/05/24 17:45
0.9% Sodium Chloride 1000 ml [Nss] 1,000 ml IV BOLUS
11/05/24 17:47
CT Abd/Pel (IV only)-DH only Urgent
Comment:
Reason For Exam: abd pain, pancreatitis, Bili 2.9
11/05/24 18:10
0.9% Sodium Chloride 1000 ml [Nss] 1,000 ml IV BOLUS
11/05/24 18:33
Alcohol Urgent
B-Hydroxybutyrate Urgent
Lactic Acid Urgent
Magnesium Urgent
Phosphorus Urgent
Prothrombin Time Urgent
11/05/24 19:47
FOLic ACID [Folvite] 1 mg 0.9% Sodium Chloride 50 ml [Nss] 50 ml IV NOW
11/05/24 21:01
Add On- LAB Urgent
Tests Added?: [id number]
0.9% Sodium Chloride [Nss (Preservative Free)] 10 ml IV NOW STA
Magnesium Sulfate 2 Gram/50 ml [Magnesium Sulfate] 2 gram in 50 ml IV NOW
Pantoprazole [Protonix IV] 40 mg IV NOW STA
11/05/24 21:05
CR Chest Portable - 1 View Urgent
Comment:
Reason For Exam: sob
Reason Study Needs to be Portable: Unable to Transport
11/05/24 21:06
Admit/Transfer Patient As Directed
Co-Sign Provider:
Level of Care: Inpatient admission
Assign to:: IMU- Intermediate Care
Physician / Group: bethany mott
Diagnosis: etoh abuse/withdrawl, met acidosis, esdras,etoh pancreatitis, hypomag,hypoxia
Reason for Hospitalization: etoh abuse/withdrawl, met acidosis, esdras,etoh pancreatitis, hypomag
Expected length of stay greater than two midnights?: Yes
ELOS- Estimated Length of Stay in days: 5
I certify the patient meets the requirements for IP care: Yes
Code Status As Directed
Resuscitation Status: Full Code
11/05/24 21:07
ABG [Arterial Blood Gas] Urgent
%Oxygen/Room Air: yes
11/05/24 21:10
PRN Pain Medication Management As Directed
May give lesser potent ordered pain med per pt: Yes
preference::
Protocol:: Medication orders for pain may be administered in a
manner that supports deferring to patient preference
when the pt is:
- Requesting an ordered lesser potent pain medication.
Least to most potent pain medications are defined
as: acetaminophen < NSAID < tramadol < opioids
(morphine, oxycodone, hydromorphone).
- Requesting a lesser dose of the same medication IF
ORDERED.
- Requesting a less intrusive route of administration
if both routes are prescribed by the provider (PO <
IV).
11/05/24 21:20
Urinalysis Reflex To Culture Urgent
Date Specimen was Collected: 11/05/24
Time Specimen was Collected: 15:43
Urine Drug Abuse Screen Urgent
Date Specimen was Collected: 11/05/24
Time Specimen was Collected: 21:06
Urine Microscopic Reflex Cult Urgent
11/05/24 21:25
Venous Doppler Lwr Ext Bilat [US Periph Venous LOWER Ext Danyel] Urgent
Comment:
Reason For Exam: hypoxia concern dvt
11/05/24 21:27
PRN Pain Medication Management As Directed
May give lesser potent ordered pain med per pt: Yes
preference::
Protocol:: Medication orders for pain may be administered in a
manner that supports deferring to patient preference
when the pt is:
- Requesting an ordered lesser potent pain medication.
Least to most potent pain medications are defined
as: acetaminophen < NSAID < tramadol < opioids
(morphine, oxycodone, hydromorphone).
- Requesting a lesser dose of the same medication IF
ORDERED.
- Requesting a less intrusive route of administration
if both routes are prescribed by the provider (PO <
IV).
11/05/24 21:55
D-Dimer Urgent
11/05/24 22:00
Dextrose 5%/Lactringers 1000ML [D5lr] 1,000 ml IV 150 mls/hr
11/05/24 22:24
0.9% Sodium Chloride [Nss (Preservative Free)] See Protocol IV PRN PRN
FOLic ACID [Folvite] 1 mg 0.9% Sodium Chloride 50 ml [Nss] 50 ml IV DAILYPRN
Lorazepam [Ativan] 1 mg PO Q2HPRN PRN
11/05/24 22:24
Case Management Consult Once
Case Management Consult: Other
Comment: Substance abuse counseling
DIETARY IP CONSULT Routine
Reason for Consult: Nutrition support, possible refeeding guidelines
Activity As Directed
Activity Level: As Tolerated
Intake/ Output As Directed
Frequency: Per unit guidelines
MSAS SCORE As Directed
MSAS Score 0-4: Repeat MSAS every 2 hours until 0-4 for three consecutive assessments, then every 4 hours x 48
hours.
MSAS Score 5-7: For MILD withdrawl symptoms. Repeat MSAS and RASS every 2 hours
MSAS Score 8-11: For MODERATE withdrawal symptoms. Repeat MSAS and RASS every 1 hour. Consider ICU or IMU
level of care.
MSAS Score > 11: For SEVERE withdrawal symptoms. Repeat MSAS and RASS every 1 hour. Notify provider, consider
ICU level of care.
MSAS Additional Instructions: If no improvement or no decrease in score from severe to moderate within 12
hours, consult psychiatry
MSAS Notify Provider: Notify provider if patient requires more than 10 mg of Lorazepam in eight hour period.
Pneumatic Compression Sleeves As Directed
Type: Knee high
Vital Signs As Directed
Frequency: Per unit guidelines
Pulse Ox/spot Check [RESP] Routine
Quantity: 1
Pt Eval And Treat Routine
Activity Level: As Tolerated
DX Deep Vein Thrombosis Video Routine
DX Deep Vein Thrombosis Video Routine
11/05/24 22:31
diazePAM [Valium Injection] 5 mg IV Q1HPRN PRN
11/05/24 22:32
diazePAM [Valium Injection] 10 mg IV Q1HPRN PRN
11/06/24 00:00
Thiamine Injection 200 mg IV Q8
11/06/24 06:00
EKG [Electrocardiogram (*1)] IN AM
Reason for Study: QTc Monitoring
Complete Blood Count/With Diff IN AM
Comprehensive Metabolic Panel IN AM
Lipase IN AM
Magnesium IN AM
VQ Scan [NM Lung Scan Vent/perf ] IN AM
Comment:
Reason For Exam: hypoxia concern pe
11/06/24 08:00
FOLic ACID [Folvite] 1 mg PO DAILY
Heparin 5,000 units SC Q12
Pantoprazole [Protonix IV] 40 mg IV BID
11/07/24 06:00
Complete Blood Count/With Diff IN AM
Comprehensive Metabolic Panel IN AM
Lipase IN AM
Magnesium IN AM
11/08/24 06:00
Complete Blood Count/With Diff IN AM
Comprehensive Metabolic Panel IN AM
11/08/24 11:00
DC Protocol for Telemetry ONCE
11/09/24 06:00
Complete Blood Count/With Diff IN AM
Comprehensive Metabolic Panel IN AM
11/09/24 08:00
Thiamine HCl [Vitamin B1] 100 mg PO BID
Abnormal Lab Results
11/05/24 11/05/24 11/05/24
15:53 18:33 21:07
MCV 99.8 H fL
(81.0-99.0)
MCH 34.7 H pg
(27.0-31.0)
Absolute Neuts (auto) 8.8 H 10^3/uL
(1.4-6.5)
Absolute Lymphs (auto) 0.5 L 10^3/uL
(1.2-3.4)
Absolute Monos (auto) 0.9 H 10^3/uL
(0.1-0.6)
Neutrophils % 86.1 H %
(42.2-75.2)
Lymphocytes % 4.6 L %
(20.5-51.1)
PT 14.8 H Sec
(11.4-14.6)
pH 7.33 L
(7.35-7.45)
pCO2 22 L mmHg
(32-35)
pO2 112 H mmHg
(83-108)
HCO3 11.6 L* mmol/L
(21-28)
ABG O2 Sat (Measured) 99.1 H %
(94-98)
Sodium 131 L mmol/L
(135-145)
Chloride 84 L mmol/L
(98-107)
Carbon Dioxide 7 L* mmol/L
(22-30)
BUN 30 H mg/dl
(7-17)
Creatinine 1.6 H mg/dL
(0.6-1.0)
Glucose 220 H mg/dl
(70-99)
Calcium 8.3 L mg/dl
(8.4-10.2)
Magnesium 1.4 L mg/dl
(1.6-2.3)
Total Bilirubin 2.9 H mg/dl
(0.2-1.3)
GGT 573 H U/L
(12-43)
AST 204 H U/L
(14-36)
ALT 101 H U/L
(0-35)
Albumin 5.8 H g/dl
(3.5-5.0)
Lipase 1401 H* U/L
(23-300)
Urine Ketones
Ur Occult Blood Reflex
Urine Bacteria (Reflex)
Urine Albumin (Reflex)
B-Hydroxybutyrate > 9.0 H mmol/L
(0.02-0.27)
11/05/24
21:20
MCV
MCH
Absolute Neuts (auto)
Absolute Lymphs (auto)
Absolute Monos (auto)
Neutrophils %
Lymphocytes %
PT
pH
pCO2
pO2
HCO3
ABG O2 Sat (Measured)
Sodium
Chloride
Carbon Dioxide
BUN
Creatinine
Glucose
Calcium
Magnesium
Total Bilirubin
GGT
AST
ALT
Albumin
Lipase
Urine Ketones 3+ A
(Negative)
Ur Occult Blood Reflex 3+ A
(Negative)
Urine Bacteria (Reflex) Few A
(Negative)
Urine Albumin (Reflex) 2+ A
(Neg - Trace)
B-Hydroxybutyrate
11/05/24 15:53
11/05/24 15:53
Vital Signs
Initial and Last Documented VS:
Initial Vital Signs
Temp Pulse Resp BP Pulse Ox
98.7 F 126 20 122/83 96
11/05/24 15:40 11/05/24 15:40 11/05/24 15:40 11/05/24 15:40 11/05/24 15:40
Last Documented Vital Signs
Temp Pulse Resp BP Pulse Ox
98.4 F 81 16 129/59 100
11/05/24 22:36 11/06/24 00:00 11/06/24 00:00 11/06/24 00:00 11/06/24 00:00
Research Kennel Supervisor consulted with Physician
Research Kennel Supervisor consulted with physician?: Yes
Name of Physician Consulted: Benjamin
MDM/Problems Addressed
Differential Diagnosis Includes:
gastritis, diverticulitis, pancreatitis
MDM/Problems Addressed:
59-year-old female with history of HTN, HLD, colon resection presents for vomiting past s days, not eating, can't hold anything down, today dizzy, weak, had to crawl up steps and 'by 3 p.m. my breathing got so shallow.' Denies pain. Hx alcoholism,
in and out of , drinking off and on, was drinking '3-4 swigs of vodka' after work for 10 days recently, last drink was 3 days ago. Denies any withdrawal symptoms. Not interested in [facility] at this time as she has a sponser at she will contact.
EKG: Sinus tachycardia
5:00 PM:
CBC noted
CMP: Bicarb 7, BUN/creat 30/1.6 glucose 220 total bili 2.9 elevated liver enzymes
Lipase 03/08/2000
Anion gap 40.
Lactic 1.[address] Alexander who agrees with assessment and plan
Patient appears surprisingly well considering her lab results, she is pain-free, no sign of encephalopathy or alcohol withdrawal
7:45 PM: CT abdomen pelvis with IV only contrast radiology report read: We did a UA on her encourage fluid as she got okay maybe she could go to the pharmacy
IMPRESSION:
Severe hepatic steatosis, similar to prior.
There is circumferential wall thickening of the distal esophagus which likely represents esophagitis.
There is a prominent periampullary duodenal diverticulum, unchanged from prior. The pancreas appears homogeneously enhancing without definite peripancreatic stranding. No fluid collections.
Colonic diverticulosis.
Plan: IVFs, CT abdomen/pelvis w IV contrast,
Admit: Acute alcoholic pancreatitis, high anion gap metabolic acidosis
Hospitalist notified of admission
patient resting, 2 L IV fluids in, pharmacy is to send folic acid for infusion
*Pulse Oximetry
SaO2: 96
Oxygen Mode of Delivery: Room air
Patient hypoxic: no
*EKG
EKG Intrepretation Date: 11/05/24
Interpretation: abnormal
Heart Rate: 119
Rate: tachycardiac
Rhythm: sinus
[place]: normal axis
Interval: normal interval
QRS Pattern: normal QRS
Ischemia: no ischemia
*Critical Care Note
Total Time (30-74mins, 75-104mins- exclusive of procedures): Not Applicable
ED Attending Note
-
Portions of this chart may have been created with voice recognition software.� Occasional wrong word or��sound alike� substitutions may have occurred due to the inherent limitations of voice recognition software.
Discharge Plan
Departure
Patient Disposition: Admit
Date of Disposition: 11/05/24
Time of Disposition: 19:48
Admit to: Med/Surg
Presentation/result/management discussed w/ accepting MD/DO: Hospitalist
Condition: Fair
Discharge Problem:
High anion gap metabolic acidosis, Acute alcoholic pancreatitis
Interventions
Interventions:
*Risk Screen - Suicide Last Done: 11/05/24 15:40
*General Assessment Last Done: 11/05/24 15:40
*Neglect/Abuse Screening Last Done: 11/05/24 15:40
*ED- Fall Risk Assessment Last Done: 11/05/24 18:46
*ED COVID-19 Vaccine History Last Done: 11/05/24 15:40
*Nursing Disposition Last Done: 11/05/24 22:36
TD-Wuwnrz-Pbparjcuti Assessment Last Done: 11/05/24 18:45
Discharge Date and Time
Discharge Date/Time: 11/05/24 22:37
[2024-11-05] MEDS: NSS 1000 IV ×2 (18:35)
[2024-11-05 18:58] LABS: INR 1.11; PT 14.8 Sec (11.4-14.6)
[2024-11-05 19:14] LABS: Magnesium 1.4 mg/dl (1.6-2.3)
--- NOTE | 2024-11-05 20:26 | W.PN.UPDATE ---
Update Note
Progress Note Update
Patient sitting congestion with therapy. Aggravated by exertion physical. I concur with assessment and plan unless stated otherwise.
This is a 59-year-old with past medical history significant for hypertension hyperlipidemia, alcohol abuse with history of alcohol withdrawal with delirium tremens in the past, history of alcoholic pancreatitis and alcoholic liver injury who
presents to the emergency department with nausea vomiting for the past few days.
Patient reported that she stopped drinking alcohol in September. However she started drinking again on October 26 and the last drink was Sunday 3 days ago. She said she drank 3-4 servings of vodka at that time possibly more. Then 1 day of ago she
started having severe vomiting and nausea. She reports vomiting throughout the day and unable to keep anything down. She now has some esophageal discomfort after so much vomiting. She denied that it was bloody but day with vomitus on the side of
her bed appeared reddish. She denied any melena. She denied any diarrhea. She denied any fevers or chills. She does report feeling very short of breath with any activity without any chest pain. She reports feeling dizzy.
Patient reports that over the last 3 days she has been unable to hold anything down, she has been sleeping water and not eating. She reports nonbilious and nonbloody emesis. She was very weak and by 3 PM had difficulty even breathing due to
weakness. She denies abdominal pain currently. She reports that her last drink was 3 days ago. She has been drinking 3-4 servings of vodka after work for the past 10 days prior to that. She denies withdrawal symptoms and she is not interested in
[facility] at this time.
She is denying any diarrhea. She has no prior history of diabetes.
On arrival in the emergency department she remained dynamically stable and afebrile with a blood pressure of 134/78 pulse rate of 109 and a temp of 98.7 she is satting 100% on room air.
Her labs are notable for a lipase of 1400, slight elevation in ALT AST 92 albumin of 2.9. Electrolytes notable for a sodium of 131, bicarb 47 chloride was 81 with anion gap of 40. BUN and creatinine were 30 and 1.6 with a glucose of 200. CBC was
unremarkable
CT scan shows severe hepatic steatosis similar to prior with signs of esophagitis. There is prominent periampullary duodenal diverticulum which centered from prior and the pancreas appears homogeneously enhancing without definitive peripancreatic
stranding and no fluid collections or necrosis.
Assessment and plan
- Chronic alcohol dependence with alcohol pancreatitis/hepatitis. Prerenal azotemia with a creatinine of 1.6. Severe anion gap metabolic acidosis. All symptoms consistent with alcohol. Patient does not appear to be in acute withdrawal at this
time. No etoh detected.
Anion gap Acidosis - Elevated bHB. No history of diabetes. Unlikely DKA. Suspect alcoholic ketoacidosis, however her history of intermittent ETOH use is unlikely to result in severe alcoholic ketoacidosis.
- admit to telemetry
- check vbg
- a1c, urine
- if pH < 7.2, will start a bicarb gtt + 1/2 NS + dextrose, otherwise continue IV D5 LR and follow bicarb. Should improve with fluids and dextrose if ketoacidosis
- if a1c elevated, will start insulin dka protocol
Dyspnea - Likely secondary to compensation for acidosis. Cannot rule out aspiration but no cough or wheezing. Unlikely PE. Satting 100% RA
- check xray, - vbg as above
- ambulating sats if, drop O2 sat, eval with u/s, d-dimer and V/Q for VTE
MARELY - Pre-renal azotemia suspected
- IV fluids as above
- hold lisinopril
- renal dose medications and avoid nephrotoxins
Pancreatitis - Acute pancreatitis/gastritis. Denies taking nsaids. Denies ppi use
- NPO for now
- PPI IV bid,
- IV fluids and pain control
QT prolongation - Tachycardia, Mag 1.4. No QT prolonging meds here
- telemetry
- Keep Mg > 2
- repeat ecg in am after fluid resuscitation
- avoid qt prolonging meds
ETOH dependence - Hx of prior withdrawal. Last drink is roughly 72 hours ago. No current withdrawal signs. Appears to be binging as she reports being sober until October 26.
- etoh withdrawal protocol, low risk for now
Hepatitis - Chronic etoh injury with steatohepatitis. INR is normal. No fulminant hepatic injury
- denied [facility]
- trend lfts for now
HTN
- continue propranolol
- hold lisinopril
DVT PPX - SCD
Code status - Full Code
--- NOTE | 2024-11-05 20:35 | HPS.HSE ---
Family Physician
-
Family Physician: LATASHA Lux
Chief Complaint
-
Intractable vomiting, ataxia, alcohol withdrawal
History of Present Illness
59-year-old female with history of alcohol abuse states she has been in AA on and off for the past 2 years with some episodes of soreness lasting for months but she cannot recall the last time she has gone that long. She reports a sober date of
September 04 but then believes she started drinking approximately 11 days ago on October 26 however is unsure. She states on Sunday yesterday she had 24-hour episode of intractable vomiting. She tried several attempts of Pedialyte, water, ronnie tai but
with no success. 11 days ago she started drinking out of the bottle of vodka she believes 3-4 shots but is unable to quantify. She states her last drink was 3 days ago 11/02/2024. She also reports painful swallowing but believes this is due to
vomiting however she does have esophagitis on CT. She reports she came to the ER today because she felt off balance with walking and lightheaded. She also reports she was short of breath with walking. On arrival she was tachycardic with heart
rate 120 bpm currently down to 102 bpm. She denies headache, blurred vision, auditory or visual hallucinations, chest pain, current shortness of breath, cough, abdominal pain, diarrhea.
She has past medical history chronic alcohol abuse with history of DTs in the past, depression, hypertension, hyperlipidemia, diverticulitis status post bowel resection, active smoker, HLD, hypomagnesemia
Medical History
Past Medical History
Past Medical History: Reports Other
Additional Past Medical History:
chronic alcohol abuse with history of DTs in the past
Active smoker
Hypomagnesemia
depression
hypertension
hyperlipidemia
diverticulitis status post bowel resection
Past Surgical History: Reports Other
Social History
Tobacco: Smoker (Half a pack a day x 40 years)
Alcohol: Daily (Unable to quantify drinks out of vodka bottle she believes 3 to 4 ounces a day started drinking 11 days ago prior sober date was September 04, 2024)
Drug: None
Personal: Single
Employment: Employed
Family History
Family History: Other (Mother 72 alcoholism, father history of alcohol abuse)
Allergies / Home Medications
Allergies reflects when Allergies were last updated in [employer].
Home Medications with original date entered in [employer]
Allergy/Medication List:
Allergies
Allergy/AdvReac Type Severity Reaction Status Date / Time
No Known Allergies Allergy Verified 04/23/24 10:22
Home Medications
atorvastatin 40 mg tablet (Lipitor) 40 mg PO DAILY High Cholesterol 04/23/24
cholecalciferol (vitamin D3) 25 mcg (1,000 unit) tablet (Vitamin D3) 25 mcg PO DAILY Supplement 04/23/24
escitalopram oxalate 10 mg tablet (Lexapro) 10 mg PO DAILY depression/anxiety 04/23/24
lisinopril 20 mg tablet 20 mg PO DAILY Blood Pressure 04/23/24
magnesium oxide 400 mg PO DAILY Supplement 04/23/24
propranolol 20 mg tablet 20 mg PO DAILY Blood Pressure 04/23/24
Review of Systems
-
History Source: Patient
A 12 point ROS was completed and negative except as noted: Yes
Constitutional: Denies Fever
EENT: Reports Sore Throat and Other (Painful swallowing post vomiting)
Respiratory: Reports Trouble Breathing; Denies Cough
Cardiac: Denies Chest Pain, Diaphoresis, Palpitations or Syncope
Abdomen/GI: Reports Nausea and Vomiting; Denies Abdominal Pain, Diarrhea or Constipated
: Denies Dysuria, Frequency, Flank Pain or Incontinence
Musculoskeletal: Denies Joint Pain or Edema
Skin: Reports Other (Dry skin to lower face peeling); Denies Itching or Rash
Neurological: Reports Other (Reported ataxia); Denies Dizzy, Headache or Weakness
Endocrine: Reports No Symptoms
Hematologic/Lymphatic: Reports No Symptoms
Psych: Reports Calm
Physical Exam
Vital Signs
Vital Signs
Temp Pulse Resp BP Pulse Ox
98.7 F 104 16 134/71 100
11/05/24 15:40 11/05/24 18:40 11/05/24 18:40 11/05/24 18:39 11/05/24 20:32
Physical Exam
General: Conversant; No Pain, Fever, Chills or Slurred Speech
HEENT: NormoCephalic, Anicteric, PERRLA, [place] Conjunctivae and Other (Dry oral mucosa, dry rash to lower face with skin peeling)
Respiratory: Clear; No Wheezes, Rales or Rhonchi
Cardiac: S1/S2 and Tachycardia (Sinus 102 bpm); No Murmur, Rub, Gallop or Peripheral Edema
Breast: Deferred by me
GI: Soft, Non Tender, Non Distended and Normal Bowel Sounds
Rectal: Deferred by Provider
Genito-urinary: Deferred by me
Musculoskeletal: No Clubbing, No Cyanosis and No Edema
Skin: Warm and Dry
Neuro: AO x 3, No Motor Deficits, Cranial Nerves Intact and No Sensory Deficits; No Slurred Speech, Facial Droop, Tremors or Sedated
Psych: Calm
Laboratory Results
-
11/05/24 15:53
11/05/24 15:53
Laboratory Results
PT 14.8 Sec (11.4-14.6) H 11/05/24 18:33
INR 1.11 11/05/24 18:33
Lactic Acid 1.4 mmol/L (0.7-2.0) 11/05/24 18:33
Total Bilirubin 2.9 mg/dl (0.2-1.3) H 11/05/24 15:53
AST 204 U/L (14-36) H 11/05/24 15:53
ALT 101 U/L (0-35) H 11/05/24 15:53
Alkaline Phosphatase 117 U/L (38-126) 11/05/24 15:53
Lipase 1401 U/L (23-300) H* 11/05/24 15:53
Data Reviewed
-
CT Scan: Report Reviewed by me
Lab Data: Labs Reviewed by me
Impression/Plan
-
Impression/plan:
Admit to IMU
# Acute metabolic acidosis
Beta-hydroxybutyrate> 9, anion gap 40
- Check abg pH 7.33, CO 311.6, CO2 22, pO2 at 112
- Will start LR with D5 150 cc an hour
#Acute dyspnea likely 2/2 acidosis
follow abg
-cxr
- monitor pulse ox
- ambulatory pulse
#Acute hypoxia on ambulation concern for possible PE
82% on room air with ambulation improves to 99% room air at rest
CXR negative for pneumonia process
##Due to MARELY cannot get CT PE study with contrast
-Will check D-dimer
- Check bilateral venous Doppler of legs
-Will check VQ scan in a.m.
#Prolonged QTc/Sinus Tachycardia
QTc B523 MS
-Hold prolonged QTc agents
- Monitor QTc
EKG sinus tach [address] depression lateral leads, QTc 523 MS
#MARELY secondary to vomiting/volume depletion
Creat 1.6/bun 30
2 L IV NSS given in ER, cont maintenance fluids
- Hold lisinopril 20 mg daily
- Follow CMP
#Acute alcohol abuse/withdrawal with intractable vomiting
#History of DTs
Drinks vodka unsure of quantity past 10 days 3-4 sips of vodka due to persistent vomiting
Last drink was 11/02/2024, alcohol nondetected
PLT normal 199, INR 1.11
- MSAS screen with protocol
- IV thiamine, IV folate
-IV Phenergan as needed avoid Zofran due to prolonged QTc
- Follow UA UDS
CT abdomen pelvis IV contrast:
1. Severe hepatic steatosis similar to prior
2. Circumferential wall thickening of distal esophagus representing esophagitis
3. Prominent periampullary duodenal diverticulum unchanged from prior
4. Pancreas appears homogeneously enhancing without peripancreatic stranding no fluid collections
5. Colonic diverticulosis
#Acute alcoholic induced pancreatitis
# Acute on chronic transaminitis secondary to pancreatitis/alcohol abuse/hepatic steatosis
IV fluids
Lipase 1401 will trend
- Follow lipase, CMP
-NPO
#Esophagitis per CT likely due to alcohol abuse
- IV Protonix bid
#Acute hypomagnesemia in setting of alcohol abuse
Magnesium 1.4
-2 g mag rider
-Follow magnesium
#Acute hyperglycemia likely reactive in setting of transaminitis/pancreatitis
Blood sugar 220 check HgbA1c
-Accu-Cheks
#HTN�benign
BP 134/71
-Continue propranolol 20 mg daily
#Depression
-Continue Lexapro 10 mg daily
#GERD
Continue Protonix 40 mg bid IV
DVT prophylaxis
heparin sq
Full code
[2024-11-05] MEDS: FOLVITE 50.2 MG IV (20:51)
[2024-11-05] MEDS: MAGNESIUM SULFATE 50 IV (21:13)
[2024-11-05] MEDS: NSS (PRESERVATIVE FREE) 10 ML IV (21:13)
[2024-11-05] MEDS: PROTONIX IV 40 MG IV (21:13)
[2024-11-05 21:14] LABS: B.E. -12.3 mmol/L; O2 Saturation % 99.1 % (94-98); PCO2 22 mmHg (32-35); PO2 112 mmHg (83-108)
[2024-11-05 21:15] LABS: HCO3 11.6 mmol/L (21-28)
[2024-11-05 21:34] LABS: Urine Character Clear (Clear)
[2024-11-05 21:41] LABS: Urine Squamous Cell >30 /LPF (Few)
[2024-11-05 21:42] LABS: Urine Red Blood Cell 0-2 /HPF (0-2); Urine White Cell 0-2 /HPF (0-5)
[2024-11-05] MEDS: ZOFRAN 4 MG IV (21:53)
[2024-11-05 22:16] LABS: D-Dimer 1.73 ug/mlFEU (0.00-0.50)
[2024-11-05] MEDS: D5LR 1000 IV (22:56)
[2024-11-05] MEDS: THIAMINE INJECTION 200 MG IV (23:05)
--- NOTE | 2024-11-05 23:51 | PTCARENOTE ---
Received verbal report from DL Sheikh. Pt arrived to floor via stretcher and walked from the stretcher to the bed with a steady gait. Pt does have some generalized weakness. Mg infusing at time of arrival and has since finished. D5LR infusing at
150 mL/hr. NSR on monitor, tachy at times. SpO2 100% on RA. MSAS 2 for intermittent nausea and hr of 86. aaox3. Admission complete. VS and assessment as documented. Pt resting in bed with call carrillo in reach.
[2024-11-06] VITALS (14 sets, daily range): BP systolic 113–152; BP diastolic 54–128; PULSE 88; O2SAT 97; BMI 23.4
[2024-11-06 00:04] LABS: GGTP 573 U/L (12-43)
[2024-11-06 01:22] LABS: Venous Blood Gas B.E. -9.9 mmol/L (-4 to +4); Venous Blood Gas O2 Sat % 100.0 %
[2024-11-06] MEDS: D5LR 1000 IV (06:03)
[2024-11-06] MEDS: COMPAZINE 5 MG IV (07:40)
[2024-11-06] MEDS: HEPARIN 5000 UNITS SC ×2 (07:42→21:35)
[2024-11-06] MEDS: FOLVITE 1 MG PO (07:43)
[2024-11-06] MEDS: PROTONIX IV 40 MG IV ×2 (07:43→21:35)
[2024-11-06] MEDS: NSS (PRESERVATIVE FREE) 10 ML IV ×2 (07:43→21:35)
[2024-11-06] MEDS: THIAMINE INJECTION 200 MG IV ×2 (07:43→15:19)
[2024-11-06 07:57] LABS: Hematocrit 30.9 % (37.0-47.0); Hemoglobin 11.2 g/dL (12.0-16.0); Mean Corp Hgb Conc. 36.2 g/dL (33.0-37.0); Mean Corpuscular Volume 97.5 fL (81.0-99.0); Nucleated Red Blood Cells % 0 %; Platelet Count 128 10^3/uL (130-400); Red Cell Dist. Width 12.4 % (11.5-14.5)
[2024-11-06 08:26] LABS: ALT (SGPT) 65 U/L (0-35); AST (SGOT) 115 U/L (14-36); Albumin 3.7 g/dl (3.5-5.0); Alkaline Phosphatase 84 U/L (38-126); Blood Urea Nitrogen 19 mg/dl (7-17); Calcium 7.9 mg/dl (8.4-10.2); Carbon Dioxide 24 mmol/L (22-30); Chloride 98 mmol/L (98-107); Estimated Creatinine Clearance 90 ml/min; Glucose 172 mg/dl (70-99); Lipase 1555 U/L (23-300); Magnesium 2.0 mg/dl (1.6-2.3); Potassium 3.2 mmol/L (3.5-5.1); Sodium 132 mmol/L (135-145); Total Protein 5.8 g/dl (6.3-8.2); eGFR > 60.00
--- NOTE | 2024-11-06 08:27 | PTCARENOTE ---
On walking rounds pt is AAOx3 on RA no distress. Strict NPO. D5LR at 150 hr
--- NOTE | 2024-11-06 08:35 | W.PN.HOSP.TC ---
Today's Communication/Plan
-
see A/P
Assessment / Plan
Assessment / Plan
HPI: 59-year-old F with past medical history significant for hypertension, hyperlipidemia, alcohol abuse with history of alcohol withdrawal with delirium tremens in the past, history of alcoholic pancreatitis, and alcoholic liver injury; who
presented with nausea vomiting for the past few days.
Patient reported that she stopped drinking alcohol in September. 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 She said she drank 3-4 servings of vodka at that time possibly more. 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
severe vomiting and nausea. She reports vomiting throughout the day and was unable to keep anything down. She now has some esophageal discomfort after so much vomiting. She denied that it was bloody but the vomitus on the side of her bed appeared
reddish. She denied any melena/diarrhea. She denied any fevers or chills. She also reported short of breath with any activity without any chest pain.
On arrival in the emergency department, she remained dynamically stable and afebrile with a blood pressure of 134/78 pulse rate of 109 and a temp of 98.7 she is satting 100% on room air.
Her labs are notable for a lipase of 1400, slight elevation in ALT AST. Electrolytes notable for a sodium of 131, bicarb 47 chloride was 81 with anion gap of 40. BUN and creatinine were 30 and 1.6 with a glucose of 200.
CT scan shows severe hepatic steatosis similar to prior with signs of esophagitis. There is prominent periampullary duodenal diverticulum which centered from prior and the pancreas appears homogeneously enhancing without definitive peripancreatic
stranding and no fluid collections or necrosis.
A/P:
# N/V, alcohol pancreatitis
# alcohol abuse and dependence, h/o alcohol pancreatitis/hepatitis.
# Prerenal MARELY due to dehydration from N/V , resolved
# Resolved metabolic acidosis/alcoholic ketoacidosis
# Hypokalemia
# Hypomagnesemia, resolved
UDS negative, No etoh detected.
SCr 1.6 -> 0.6
Cont IVF, change to NSS with K
Monitor LFT, improving
Monitor lipase level
Follow A1C
Monitor for withdrawal, cont MSAS protocol
[facility] CS
Start clear liquid diet, ADAT to regular
# Dyspnea - Likely secondary to respiratory compensation for acidosis.
Sat 100% RA ,
d-dimer elevated which is likely reactive, can check repeat d dimer level, if negative, no need for further work up; if remain positive, can proceed with VQ scan that was ordered
Noted US neg for DVT
# HTN
resume INSURANCE CLAIMS ANALYST Propranolol today
resume INSURANCE CLAIMS ANALYST lisinopril tmr with resolution of MARELY
DVT PPX - SCD
Code status - Full Code
total time 51 min
Anticipated Discharge: 24 - 48 hours
Subjective/Interval History
-
Date of Service: November 06, 2024
Objective Data
-
Labs:
Laboratory Results
11/05/24 11/06/24
21:07 07:32
WBC 7.7
Hgb 11.2 L D
Hct 30.9 L
Plt Count 128 L D
HCO3 11.6 L*
Sodium 132 L
Potassium 3.2 L
Chloride 98
Carbon Dioxide 24
BUN 19 H
Creatinine 0.6
Glucose 172 H
Calcium 7.9 L
Total Bilirubin 1.7 H D
AST 115 H
ALT 65 H
Alkaline Phosphatase 84
Vital Signs:
Vital Signs
Temp Pulse Resp BP Pulse Ox
36.8 C 83 15 135/74 98
11/06/24 07:00 11/06/24 08:00 11/06/24 08:00 11/06/24 08:00 11/06/24 08:00
I&O
11/05/24 11/06/24 11/07/24
06:59 06:59 06:59
Intake Total 1200 / 1200
Output Total 0 / 0
Balance 1200 / 1200
Review of Systems
-
All other systems: Reviewed and negative
Constitutional: Reports No Symptoms
Respiratory: Denies Trouble Breathing
Abdomen/GI: Denies Nausea or Vomiting
Physical Exam
-
General: Well Developed, Well Nourished, No Apparent Distress, Comfortable and Conversant
HEENT: Normocephalic, Atraumatic and Moist Mucous Membranes
Respiratory: Clear to Auscultation and Non Labored Respirations; Negative Accessory Resp Muscle Use
Cardiac: Regular Rhythm and S1/S2; Negative Murmur, Rub or Gallop
GI: Soft, Nontender, Nondistended and Normal Bowel Sounds; Negative Organomegaly
Rectal: Deferred by Provider
Musculoskeletal: No Clubbing, No Cyanosis and No Edema
Skin: Negative Rash
Neuro: Awake and Alert
Psych: Calm and Intact Judgement/Insight
Data Reviewed
-
CT Scan: Report Reviewed by me
Labs: Labs Reviewed by me
[2024-11-06 09:07] LABS: Glycohemoglobin (HgbA1c) 5.0 % (4.0-5.6)
[2024-11-06] MEDS: LEXAPRO 10 MG PO (09:18)
[2024-11-06] MEDS: INDERAL 20 MG PO (09:18)
[2024-11-06] MEDS: KCL 270 MEQ IV (09:19)
[2024-11-06 10:15] LABS: D-Dimer 1.76 ug/mlFEU (0.00-0.50)
[2024-11-06] MEDS: NSS with KCL 40 MEQ 1000 IV (10:19)
--- NOTE | 2024-11-06 11:24 | CM ---
Initial assessment completed with patient who lives with her and adult daughter in a 2 story plus basement home with B/B on 2nd and 1/2 bath on 1st, no steps to enter. 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 No DME. No in-home services. No HC-POA. No VA benefits. No psychiatric hospitalizations. [employer] is LATASHA Lux with [facility] in [place]. [facility]acy is [facility] in [place]. Discharge POC: Anticipate home with no needs.
Patient has declined [facility] services. She has and utilizes her AA sponsor and attends AA meetings daily as of recent.
[2024-11-06] MEDS: ATIVAN 1 MG PO (15:19)
[2024-11-06] MEDS: NICODERM TRANSDERMAL 14 MG TRANSDERM (15:20)
[2024-11-06] MEDS: CALCIUM GLUCONATE 100 IV (15:21)
--- NOTE | 2024-11-06 17:34 | PTCARENOTE ---
Pt got dressed ripped IV tubing wants to go out and smoke and will come back in. Pt educated that there is no smoking on campus, she stated she walk far away.Told pt if she left her room she could not come back she would need to go through the ER
then stated she wanted to be discharged. Attempted to TT DR Mortensen who has left Cross coverage does not discharge .Pt friend walked into situation and talking with pt . Fire Control Technician G aware
--- NOTE | 2024-11-06 18:01 | PTCARENOTE ---
Pt has decided to stay and will talk with DR Mortensen in the morning
[2024-11-06] MEDS: REMOVE NICOTINE PATCH 1 PATCH REMOVE (21:36)
[2024-11-07] VITALS (10 sets, daily range): BP systolic 105–166; BP diastolic 56–93
[2024-11-07] MEDS: THIAMINE INJECTION 200 MG IV ×4 (01:01→23:00)
[2024-11-07] MEDS: NSS with KCL 40 MEQ 1000 IV ×2 (03:27→14:56)
[2024-11-07 05:23] LABS: Hematocrit 30.6 % (37.0-47.0); Hemoglobin 11.2 g/dL (12.0-16.0); Mean Corp Hgb Conc. 36.6 g/dL (33.0-37.0); Mean Corpuscular Volume 96.2 fL (81.0-99.0); Platelet Count 115 10^3/uL (130-400); Red Cell Dist. Width 12.1 % (11.5-14.5)
[2024-11-07 05:38] LABS: ALT (SGPT) 70 U/L (0-35); AST (SGOT) 181 U/L (14-36); Albumin 3.5 g/dl (3.5-5.0); Alkaline Phosphatase 94 U/L (38-126); Blood Urea Nitrogen 7 mg/dl (7-17); Calcium 8.1 mg/dl (8.4-10.2); Carbon Dioxide 26 mmol/L (22-30); Chloride 100 mmol/L (98-107); Estimated Creatinine Clearance 90 ml/min; Glucose 98 mg/dl (70-99); Magnesium 1.5 mg/dl (1.6-2.3); Potassium 3.3 mmol/L (3.5-5.1); Sodium 134 mmol/L (135-145); Total Protein 5.5 g/dl (6.3-8.2); eGFR > 60.00
[2024-11-07] MEDS: MAGNESIUM SULFATE 50 IV ×2 (06:18→08:50)
[2024-11-07] MEDS: KCL 160 MEQ IV (06:18)
[2024-11-07 06:27] LABS: Lipase > 4000 U/L (23-300)
--- NOTE | 2024-11-07 06:55 | PTCARENOTE ---
Abnormal labs this am, K 3.3, Mg 1.5, and Lipase >4000. LATASHA Gallardo notified and orders received for IV KCl and IV Mg sulfate, both of which are currently infusing (see MAR).
--- NOTE | 2024-11-07 08:18 | W.PN.HOSP.TC ---
Addendum entered and electronically signed by Estrellita Mortensen MD 11/07/24 11:37:
# Hyponatremia
Original Note:
Today's Communication/Plan
-
see A/P
Assessment / Plan
Assessment / Plan
HPI: 59-year-old F with past medical history significant for hypertension, hyperlipidemia, alcohol abuse with history of alcohol withdrawal with delirium tremens in the past, history of alcoholic pancreatitis, and alcoholic liver injury; who
presented with nausea vomiting for the past few days.
Patient reported that she stopped drinking alcohol in September. 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 She said she drank 3-4 servings of vodka at that time possibly more. 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
severe vomiting and nausea. She reports vomiting throughout the day and was unable to keep anything down. She now has some esophageal discomfort after so much vomiting. She denied that it was bloody but the vomitus on the side of her bed appeared
reddish. She denied any melena/diarrhea. She denied any fevers or chills. She also reported short of breath with any activity without any chest pain.
On arrival in the emergency department, she remained dynamically stable and afebrile with a blood pressure of 134/78 pulse rate of 109 and a temp of 98.7 she is satting 100% on room air.
Her labs are notable for a lipase of 1400, slight elevation in ALT AST. Electrolytes notable for a sodium of 131, bicarb 47 chloride was 81 with anion gap of 40. BUN and creatinine were 30 and 1.6 with a glucose of 200.
CT scan shows severe hepatic steatosis similar to prior with signs of esophagitis. There is prominent periampullary duodenal diverticulum which centered from prior and the pancreas appears homogeneously enhancing without definitive peripancreatic
stranding and no fluid collections or necrosis.
A/P:
# N/V, alcohol pancreatitis
# alcohol abuse and dependence, h/o alcohol pancreatitis/hepatitis.
# Prerenal MARELY due to dehydration from N/V , resolved
# Resolved metabolic acidosis/alcoholic ketoacidosis
# Hypokalemia
# Hypomagnesemia
UDS negative, No etoh detected.
SCr 1.6 -> 0.4
Cont IVF NSS with K
Monitor LFT, improving
Monitor lipase level
A1C 5%
Monitor for withdrawal, cont MSAS protocol
Patient has declined [facility] services
Make NPO for now with worsening lipase level
# Dyspnea - Likely secondary to respiratory compensation for acidosis.
Sat 100% RA ,
d-dimer elevated which is likely reactive, BL LE US neg for DVT, VQ scan low probability
# HTN
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
DVT PPX - SCD
Code status - Full Code
Anticipated Discharge: 24 - 48 hours
Subjective/Interval History
-
Date of Service: November 07, 2024
Objective Data
-
Labs:
Laboratory Results
11/07/24
04:39
WBC 6.8
Hgb 11.2 L
Hct 30.6 L
Plt Count 115 L
Sodium 134 L
Potassium 3.3 L
Chloride 100
Carbon Dioxide 26
BUN 7
Creatinine 0.4 L
Glucose 98
Calcium 8.1 L
Total Bilirubin 1.7 H
AST 181 H
ALT 70 H
Alkaline Phosphatase 94
Vital Signs:
Vital Signs
Temp Pulse Resp BP Pulse Ox
36.9 C 58 11 166/92 98
11/07/24 07:59 11/07/24 06:00 11/07/24 06:00 11/07/24 06:00 11/07/24 06:00
I&O
11/06/24 11/07/24 11/08/24
06:59 06:59 06:59
Intake Total 1200 / 1200 2865 / 2865
Output Total 0 / 0
Balance 1200 / 1200 2865 / 2865
Review of Systems
-
History Source: Patient
Abdomen/GI: Denies Abdominal Pain, Nausea or Vomiting
Physical Exam
-
General: Well Developed, Well Nourished, No Apparent Distress, Comfortable and Conversant
HEENT: Normocephalic, Atraumatic and Moist Mucous Membranes
Respiratory: Clear to Auscultation and Non Labored Respirations; Negative Accessory Resp Muscle Use
Cardiac: Regular Rhythm and S1/S2; Negative Murmur, Rub or Gallop
GI: Soft, Nontender, Nondistended and Normal Bowel Sounds; Negative Organomegaly
Rectal: Deferred by Provider
Musculoskeletal: No Clubbing, No Cyanosis and No Edema
Skin: Negative Rash
Neuro: Awake and Alert
Psych: Calm and Intact Judgement/Insight
Data Reviewed
-
CT Scan: Report Reviewed by me
Labs: Labs Reviewed by me and Discussed with Patient
[2024-11-07] MEDS: KCL 270 MEQ IV (08:49)
[2024-11-07] MEDS: NICODERM TRANSDERMAL 14 MG TRANSDERM (08:50)
[2024-11-07] MEDS: PROTONIX IV 40 MG IV ×2 (08:51→20:05)
[2024-11-07] MEDS: HEPARIN 5000 UNITS SC ×2 (08:51→20:05)
[2024-11-07] MEDS: NSS (PRESERVATIVE FREE) 10 ML IV ×2 (08:51→20:06)
[2024-11-07] MEDS: LEXAPRO 10 MG PO (08:51)
[2024-11-07] MEDS: FOLVITE 1 MG PO (08:52)
[2024-11-07] MEDS: ZESTRIL 20 MG PO (08:52)
[2024-11-07] MEDS: INDERAL 20 MG PO (08:52)
--- NOTE | 2024-11-07 10:22 | PN.CDI ---
CDI
- -
CDI:
Physician Documentation Request
Admit Date: 11/05/24 21:35
Dear Doctor Balbina,
Please review the following and provide your response in the progress notes.
Clinical Indicators:
Pt admitted with Alcohol induced pancreatics /MARELY/Alcohol withdrawal
Sodium levels are as below/ Pt dd get IVFs
11/05/24 11/06/24 11/07/24
15:53 07:32 04:39
Sodium 131 L 132 L 134 L
Based on the above, could you clarify in the progress notes, the appropriate diagnosis, if significant, that supports the above abnormalities and additional evaluation, monitoring and/or treatment rendered:
Hyponatremia
Abnormal lab value
Other ( please specify)
Use of terms such as suspected, likely, concern for, or probable (associated with a specific diagnosis that is being evaluated, monitored, or treated as if it exists) are acceptable and can be coded in the inpatient setting, when documented at the
time of discharge.
Thank you,
Savanna Perez RN
CDI Specialist
[facility]
Please use your independent medical judgment in providing your response.
--- NOTE | 2024-11-07 15:50 | CM ---
Discharge POC: Anticipate home with no needs.
[2024-11-07] MEDS: NSS with KCL 40 MEQ IV (16:59)
--- NOTE | 2024-11-07 18:44 | PTCARENOTE ---
Ambulates to bathroom, urine output adequate, quentin yellow. Few loose stools noted - pt flushed. NPO status maintained- takes few sips clears on occasion. Denies pain. IVF infusing- KCl and Mag riders given this am as ordered.
--- NOTE | 2024-11-07 22:34 | PTCARENOTE ---
Assume care from Am RN. VSS. Anxious at times bit pleasant. AAOX3. SB to NSR in the monitor. + BS. Lungs are clear. Call carrillo within reach.
[2024-11-07] MEDS: REMOVE NICOTINE PATCH 1 PATCH REMOVE (23:00)
[2024-11-08] VITALS (9 sets, daily range): BP systolic 106–164; BP diastolic 78–102
[2024-11-08] MEDS: NSS with KCL 40 MEQ 1000 IV ×3 (01:04→20:39)
[2024-11-08 05:09] LABS: Hematocrit 32.3 % (37.0-47.0); Hemoglobin 11.9 g/dL (12.0-16.0); Mean Corp Hgb Conc. 36.8 g/dL (33.0-37.0); Mean Corpuscular Volume 96.7 fL (81.0-99.0); Platelet Count 115 10^3/uL (130-400); Red Cell Dist. Width 11.9 % (11.5-14.5)
[2024-11-08 05:13] LABS: ALT (SGPT) 83 U/L (0-35); AST (SGOT) 248 U/L (14-36); Albumin 3.6 g/dl (3.5-5.0); Alkaline Phosphatase 106 U/L (38-126); Blood Urea Nitrogen 4 mg/dl (7-17); Calcium 8.6 mg/dl (8.4-10.2); Carbon Dioxide 29 mmol/L (22-30); Chloride 98 mmol/L (98-107); Estimated Creatinine Clearance 90 ml/min; Glucose 96 mg/dl (70-99); Magnesium 1.7 mg/dl (1.6-2.3); Potassium 3.8 mmol/L (3.5-5.1); Sodium 133 mmol/L (135-145); Total Protein 5.8 g/dl (6.3-8.2); eGFR > 60.00
--- NOTE | 2024-11-08 08:10 | PTCARENOTE ---
Patient received from assistant shift supervisor. Patient resting comfortably in bed. AAO, VSS. MSAS this AM was a 1. No events noted overnight. No complaints of pain. NSS with potassium through IV. NPO, possible advancement of diet. No testing at this
time. Call carrillo in reach.
[2024-11-08] MEDS: THIAMINE INJECTION 200 MG IV ×2 (08:33→16:09)
[2024-11-08] MEDS: NSS (PRESERVATIVE FREE) 10 ML IV ×2 (08:33→20:38)
[2024-11-08] MEDS: PROTONIX IV 40 MG IV ×2 (08:33→20:38)
[2024-11-08] MEDS: HEPARIN 5000 UNITS SC ×2 (08:34→20:38)
[2024-11-08] MEDS: ZESTRIL 20 MG PO (08:34)
[2024-11-08] MEDS: LEXAPRO 10 MG PO (08:35)
[2024-11-08] MEDS: INDERAL 20 MG PO (08:36)
[2024-11-08] MEDS: FOLVITE 1 MG PO (08:36)
--- NOTE | 2024-11-08 09:15 | W.PN.HOSP.TC ---
Today's Communication/Plan
-
see A/P
Assessment / Plan
Assessment / Plan
HPI: 59-year-old F with past medical history significant for hypertension, hyperlipidemia, alcohol abuse with history of alcohol withdrawal with delirium tremens in the past, history of alcoholic pancreatitis, and alcoholic liver injury; who
presented with nausea vomiting for the past few days.
Patient reported that she stopped drinking alcohol in September. However she started drinking again on October 26 and the last drink was 3 days VERIFIER. She said she drank 3-4 servings of vodka at that time possibly more. Then 1 day VERIFIER, she started having
severe vomiting and nausea. She reports vomiting throughout the day and was unable to keep anything down. She now has some esophageal discomfort after so much vomiting. She denied that it was bloody but the vomitus on the side of her bed appeared
reddish. She denied any melena/diarrhea. She denied any fevers or chills. She also reported short of breath with any activity without any chest pain.
On arrival in the emergency department, she remained dynamically stable and afebrile with a blood pressure of 134/78 pulse rate of 109 and a temp of 98.7 she is satting 100% on room air.
Her labs are notable for a lipase of 1400, slight elevation in ALT AST. Electrolytes notable for a sodium of 131, bicarb 47 chloride was 81 with anion gap of 40. BUN and creatinine were 30 and 1.6 with a glucose of 200.
CT scan shows severe hepatic steatosis similar to prior with signs of esophagitis. There is prominent periampullary duodenal diverticulum which centered from prior and the pancreas appears homogeneously enhancing without definitive peripancreatic
stranding and no fluid collections or necrosis.
A/P:
# N/V, alcohol pancreatitis
# alcohol abuse and dependence, h/o alcohol pancreatitis/hepatitis.
# Prerenal MARELY due to dehydration from N/V , resolved
# Resolved metabolic acidosis/alcoholic ketoacidosis
# Hypokalemia
# Hypomagnesemia
UDS negative, No etoh detected.
SCr 1.6 -> 0.3
Cont IVF NSS with K
Monitor LFT, improving
Monitor lipase level , pending level today
A1C 5%
Monitor for withdrawal, cont MSAS protocol
Patient has declined [facility] services
start clears today
# Dyspnea - Likely secondary to respiratory compensation for acidosis.
Sat 100% RA ,
d-dimer elevated which is likely reactive, BL LE US neg for DVT, VQ scan low probability
# HTN
resumed VERIFIER Propranolol and lisinopril
DVT PPX - SCD
Code status - Full Code
Anticipated Discharge: 24 - 48 hours
Subjective/Interval History
-
Date of Service: November 08, 2024
Objective Data
-
Labs:
Laboratory Results
11/08/24
04:21
WBC 6.0
Hgb 11.9 L
Hct 32.3 L
Plt Count 115 L
Sodium 133 L
Potassium 3.8
Chloride 98
Carbon Dioxide 29
BUN 4 L
Creatinine 0.3 L
Glucose 96
Calcium 8.6
Total Bilirubin 1.8 H
AST 248 H
ALT 83 H
Alkaline Phosphatase 106
Vital Signs:
Vital Signs
Temp Pulse Resp BP Pulse Ox
36.7 C 79 16 164/93 99
11/08/24 07:20 11/08/24 08:34 11/08/24 06:00 11/08/24 08:34 11/08/24 06:00
I&O
11/07/24 11/08/24 11/09/24
06:59 06:59 06:59
Intake Total 2865 / 2865 2960 / 2960
Output Total 3100 / 3100
Balance 2865 / 2865 -140 / -140
Review of Systems
-
History Source: Patient
Abdomen/GI: Denies Abdominal Pain, Nausea or Vomiting
Physical Exam
-
General: Well Developed, Well Nourished, No Apparent Distress, Comfortable and Conversant
HEENT: Normocephalic, Atraumatic and Moist Mucous Membranes
Respiratory: Clear to Auscultation and Non Labored Respirations; Negative Accessory Resp Muscle Use
Cardiac: Regular Rhythm and S1/S2; Negative Murmur, Rub or Gallop
GI: Soft, Nontender, Nondistended and Normal Bowel Sounds; Negative Organomegaly
Rectal: Deferred by Provider
Musculoskeletal: No Clubbing, No Cyanosis and No Edema
Skin: Negative Rash
Neuro: Awake and Alert
Psych: Calm and Intact Judgement/Insight
Data Reviewed
-
CT Scan: Report Reviewed by me
Labs: Labs Reviewed by me and Discussed with Patient
[2024-11-08] MEDS: NICODERM TRANSDERMAL 14 MG TRANSDERM (09:27)
[2024-11-08 16:37] LABS: Lipase > 4000 U/L (23-300)
[2024-11-08] MEDS: REMOVE NICOTINE PATCH 1 PATCH REMOVE (22:45)
[2024-11-09] VITALS: BP 151/94
[2024-11-09 05:08] LABS: Hematocrit 33.7 % (37.0-47.0); Hemoglobin 12.6 g/dL (12.0-16.0); Mean Corp Hgb Conc. 37.4 g/dL (33.0-37.0); Mean Corpuscular Volume 96.3 fL (81.0-99.0); Platelet Count 145 10^3/uL (130-400); Red Cell Dist. Width 12.0 % (11.5-14.5)
[2024-11-09 05:35] LABS: ALT (SGPT) 71 U/L (0-35); AST (SGOT) 161 U/L (14-36); Albumin 3.8 g/dl (3.5-5.0); Alkaline Phosphatase 114 U/L (38-126); Blood Urea Nitrogen 3 mg/dl (7-17); Calcium 8.6 mg/dl (8.4-10.2); Carbon Dioxide 24 mmol/L (22-30); Chloride 96 mmol/L (98-107); Estimated Creatinine Clearance 90 ml/min; Glucose 96 mg/dl (70-99); Magnesium 1.1 mg/dl (1.6-2.3); Potassium 3.9 mmol/L (3.5-5.1); Sodium 130 mmol/L (135-145); Total Protein 5.9 g/dl (6.3-8.2); eGFR > 60.00
[2024-11-09 06:03] VITALS: BP 146/98
[2024-11-09] MEDS: NSS with KCL 40 MEQ 1000 IV (06:03)
[2024-11-09] MEDS: MAGNESIUM SULFATE 50 IV (06:22)
--- NOTE | 2024-11-09 07:50 | W.PN.HOSP.TC ---
Today's Communication/Plan
-
see A/P
Assessment / Plan
Assessment / Plan
HPI: 59-year-old F with past medical history significant for hypertension, hyperlipidemia, alcohol abuse with history of alcohol withdrawal with delirium tremens in the past, history of alcoholic pancreatitis, and alcoholic liver injury; who
presented with nausea vomiting for the past few days.
Patient reported that she stopped drinking alcohol in September. However she started drinking again on October 26 and the last drink was 3 days [employer]. She said she drank 3-4 servings of vodka at that time possibly more. Then 1 day [employer], she started having
severe vomiting and nausea. She reports vomiting throughout the day and was unable to keep anything down. She now has some esophageal discomfort after so much vomiting. She denied that it was bloody but the vomitus on the side of her bed appeared
reddish. She denied any melena/diarrhea. She denied any fevers or chills. She also reported short of breath with any activity without any chest pain.
On arrival in the emergency department, she remained dynamically stable and afebrile with a blood pressure of 134/78 pulse rate of 109 and a temp of 98.7 she is satting 100% on room air.
Her labs are notable for a lipase of 1400, slight elevation in ALT AST. Electrolytes notable for a sodium of 131, bicarb 47 chloride was 81 with anion gap of 40. BUN and creatinine were 30 and 1.6 with a glucose of 200.
CT scan shows severe hepatic steatosis similar to prior with signs of esophagitis. There is prominent periampullary duodenal diverticulum which centered from prior and the pancreas appears homogeneously enhancing without definitive peripancreatic
stranding and no fluid collections or necrosis.
A/P:
# N/V, alcohol pancreatitis
# alcohol abuse and dependence, h/o alcohol pancreatitis/hepatitis.
# Prerenal MARELY due to dehydration from N/V , resolved
# Resolved metabolic acidosis/alcoholic ketoacidosis
# Hypokalemia
# Hypomagnesemia
UDS negative, No etoh detected.
SCr 1.6 -> 0.4
Cont IVF NSS with K
Monitor LFT, improving
Monitor lipase level , was still > 4000 yesterday, pending level today
A1C 5%
Monitor for withdrawal, cont MSAS protocol
Patient has declined [facility] services
Cont clears, pending lipase level today to decide on diet advancement
# Dyspnea - Likely secondary to respiratory compensation for acidosis.
Sat 100% RA ,
d-dimer elevated which is likely reactive, BL LE US neg for DVT, VQ scan low probability
# HTN
resumed [employer] Propranolol and lisinopril
DVT PPX - SCD
Code status - Full Code
DW RN
Pt states that she absolutely needs to leave today. Medically not cleared yet because lipase level was still > 4000 yesterday and level pending today. Also diet has not been advanced to solid yet.
Pt signed out AMA
Anticipated Discharge: Today
Subjective/Interval History
-
Date of Service: November 09, 2024
Objective Data
-
Labs:
Laboratory Results
11/09/24
04:33
WBC 12.1 H
Hgb 12.6
Hct 33.7 L
Plt Count 145 D
Sodium 130 L
Potassium 3.9
Chloride 96 L
Carbon Dioxide 24
BUN 3 L
Creatinine 0.4 L
Glucose 96
Calcium 8.6
Total Bilirubin 1.6 H
AST 161 H
ALT 71 H
Alkaline Phosphatase 114
Vital Signs:
Vital Signs
Temp Pulse Resp BP Pulse Ox
36.8 C 79 12 146/98 99
11/09/24 03:00 11/09/24 06:03 11/09/24 06:03 11/09/24 06:03 11/09/24 00:00
I&O
11/08/24 11/09/24 11/10/24
06:59 06:59 06:59
Intake Total 2960 / 2960 1680 / 1680
Output Total 3100 / 3100 1000 / 1000
Balance -140 / -140 680 / 680
Review of Systems
-
History Source: Patient
All other systems: Reviewed and negative
Abdomen/GI: Denies Abdominal Pain, Nausea or Vomiting
Physical Exam
-
General: Well Developed, Well Nourished, No Apparent Distress, Comfortable and Conversant
HEENT: Normocephalic, Atraumatic and Moist Mucous Membranes
Respiratory: Clear to Auscultation and Non Labored Respirations; Negative Accessory Resp Muscle Use
Cardiac: Regular Rhythm and S1/S2; Negative Murmur, Rub or Gallop
GI: Soft, Nontender, Nondistended and Normal Bowel Sounds; Negative Organomegaly
Rectal: Deferred by Provider
Musculoskeletal: No Clubbing, No Cyanosis and No Edema
Skin: Negative Rash
Neuro: Awake and Alert
Psych: Calm and Intact Judgement/Insight
Data Reviewed
-
Labs: Labs Reviewed by me and Discussed with Patient
--- NOTE | 2024-11-09 08:41 | PTCARENOTE ---
Patient signed AMA form with Dr. Mortensen at bedside, discharge order placed for follow up lab work. Paperwork given and signed. IV's removed. Patient dressed self and ambulated out of unit.
--- NOTE | 2024-11-09 09:42 | CM ---
CM following re: discharge planning.
Reviewed pt's chart, met with pt.
Discharge order noted. Pt is aware, expressed her agreement and he stated her daughter will transport home.
PT and OT evaluations noted - pt has no PT/net maker needs, independent with functional ability.
D/C plan: home no needs. Daughter to transport.
--- NOTE | 2024-11-09 11:10 | W.DCSUMMARY ---
Discharge Summary
Discharge Data
Date of Admission: 11/05/24
Date of Discharge: 11/09/24
Total time spent discharging patient (in min): 40
-
Pending Results: No
Hospital Course
Principal Diagnosis:
N/V due to alcohol pancreatitis
Resolved prerenal MARELY, metabolic acidosis/alcoholic ketoacidosis, hypokalemia and hypomagnesemia.
Transaminitis
Chronic Diagnoses:�
Alcohol abuse and dependence,
h/o alcohol pancreatitis/hepatitis.
HTN, on Propranolol and lisinopril prior to admission
Hyperlipidemia
Consultations:�
None
Procedures:�
None
Clinical course:�
This is a 59-year-old female with past medical history as stated above, who presented with nausea and vomiting.
Problem 1:
N/V due to alcohol pancreatitis.
This was associated with prerenal MARELY, metabolic acidosis/alcoholic ketoacidosis, hypokalemia and hypomagnesemia.
Her UDS was negative, no alcohol was detected.
Her serum creatinine decreased from 1.6 to 0.4 following IVF.
Her last lipase level was still significantly elevated > 4000, hence she was recommended to stay in the hospital for IVF and slow advancement of diet.
Unfortunately, the patient could not stay in the hospital due to social reasons, and she signed herself out AMA.
She has been informed to continue to monitor her LFT, lipase level, CBC and BMP with her PCP outpatient.
As for the rest of her medical problems, they were stable during her hospital stay.
Discharge Plan
-
Patient Disposition: Against Medical Advice
Discharge Diagnosis/Procedures: Alcohol pancreatitis;
Resolved prerenal MARELY;
Resolved metabolic acidosis/alcoholic ketoacidosis;
Hypokalemia and Hypomagnesemia
Condition: Fair
Diet: As tolerated
Additional Diets: clears for a few days before advance to full liquid and eventual low fat diet diet
Activity: As tolerated
Driving Restrictions: As prior to admission
Blood Work: CBC, CMP, Lipase level, magnesium level with your PCP within 1 week
Referrals:
Charisse Pérez CRNP [Family Provider] - in less than 1 week
Prescriptions:
New
(DME) CBC without diff
See Rx Instructions .Route .MEDSUPPLY Qty: 1 0RF
Rx Instructions:
11/12/2024 - 11/19/2024, result to your PCP
# pancreatitis
(DME) CMP
See Rx Instructions .Route .MEDSUPPLY Qty: 1 0RF
Rx Instructions:
11/12/2024 - 11/19/2024, result to your PCP
# pancreatitis
(DME) magnesium level
See Rx Instructions .Route .MEDSUPPLY Qty: 1 0RF
Rx Instructions:
11/12/2024 - 11/19/2024, result to your PCP
# hypomagnesemia
(DME) lipase
See Rx Instructions .Route .MEDSUPPLY Qty: 1 0RF
Rx Instructions:
11/12/2024 - 11/19/2024, result to your PCP
# pancreatitis
Continued
lisinopril 20 mg Tablet
20 mg PO DAILY
propranolol 20 mg Tablet
20 mg PO DAILY
Patient Comments:
04/23/24-PATIENT DID NOT KNOW THE DIRECTION WERE BID, SHE ONLY BEEN TAKING IT DAILY
escitalopram oxalate [Lexapro] 10 mg Tablet
10 mg PO DAILY
cholecalciferol (vitamin D3) [Vitamin D3] 25 mcg (1,000 unit) Tablet
25 mcg PO DAILY
magnesium oxide 400 mg magnesium Tablet
400 mg PO DAILY
Held
atorvastatin [Lipitor] 40 mg Tablet
40 mg PO DAILY
Hold Instructions: Resume on 11/16/24.
hold until you check your CMP
Discharge Orders:
Discharge Patient (As Directed); Ordered 11/09/24
Ordered By: Estrellita Mortensen
Discharge Date and Time
Discharge Date/Time: 11/09/24 09:09
Print Language: FRISIAN
[2024-11-09 16:16] LABS: Lipase > 4000 U/L (23-300)
== END 2024-11-09 09:09 | disposition left against medical advice (07) | DRG 439 ==
LOC: IMU 21:35
PROVIDERS: Clinical Nurse Specialist Family Health; Emergency Medicine; Registered Nurse; ADMITTING PHYSICIAN Internal Medicine; ATTENDING PHYSICIAN Internal Medicine; EMERGENCY PHYSICIAN Emergency Medicine; FAMILY PHYSICIAN Nurse Practitioner Primary Care
DX: K85.20 Alcohol induced acute pancreatitis without necrosis or infection (principal); E87.21 Acute metabolic acidosis; F10.239 Alcohol dependence with withdrawal, unspecified; N17.9 Acute kidney failure, unspecified; E87.6 Hypokalemia; E83.42 Hypomagnesemia; I10 Essential (primary) hypertension; E78.00 Pure hypercholesterolemia, unspecified; Z53.29 Procedure and treatment not carried out because of patient's decision for other reasons; F17.200 Nicotine dependence, unspecified, uncomplicated; F32.A Depression, unspecified; Z90.49 Acquired absence of other specified parts of digestive tract; Z63.72 Alcoholism and drug addiction in family; Z81.1 Family history of alcohol abuse and dependence; K76.0 Fatty (change of) liver, not elsewhere classified; K20.90 Esophagitis, unspecified without bleeding; Z79.899 Other long term (current) drug therapy
CPT/HCPCS: 71045; 74177; 78582; 80053; 80306; 81003; 81015; 82010; 82077; 82805; 82977; 83036; 83605; 83690; 83735; 84100; 85025; 85027; 85379; 85610; 93005; 93970; 96374; 97116; 97162; 99285; A9540; A9567; Q9967

== ENCOUNTER 2025-02-23 20:58 | Inpatient (IN) | payer OTHER, SELFPAY ==
[2025-02-23 14:40] VITALS: BP 155/87
[2025-02-23 14:57] LABS: Hematocrit 44.1 % (37.0-47.0); Hemoglobin 16.2 g/dL (12.0-16.0); Mean Corp Hgb Conc. 36.7 g/dL (33.0-37.0); Mean Corpuscular Volume 87.2 fL (81.0-99.0); Nucleated Red Blood Cells % 0 %; Platelet Count 220 10^3/uL (130-400); Red Cell Dist. Width 12.3 % (11.5-14.5)
[2025-02-23 15:34] LABS: ALT (SGPT) 102 U/L (0-35); AST (SGOT) 86 U/L (14-36); Albumin 5.7 g/dl (3.5-5.0); Alkaline Phosphatase 92 U/L (38-126); Blood Urea Nitrogen 28 mg/dl (7-17); Calcium 10.0 mg/dl (8.4-10.2); Carbon Dioxide 6 mmol/L (22-30); Chloride 90 mmol/L (98-107); Glucose 158 mg/dl (70-99); Potassium 4.1 mmol/L (3.5-5.1); Sodium 129 mmol/L (135-145); Total Protein 8.8 g/dl (6.3-8.2); eGFR > 60.00
[2025-02-23 16:57] VITALS: BP 150/107
--- NOTE | 2025-02-23 19:05 | ED.GENMED ---
History of Present Illness
General
Chief Complaint: Alcohol Problem
Source: patient and previous hospital records
Exam Limitations: none
Time Seen by Provider: 02/23/25 18:41
Nursing documentation reviewed up to this point in time: agreed with
History of Present Illness
History of Present Illness:
59-year-old female alcoholic presents with nausea vomiting abdominal pain had been in rehab relapsed was on a melendez for a few days last drink about 4 to 5 days ago
She has not been able to keep any fluids or food down for a few days, somewhat reminiscent of when she had pancreatitis previously
Past History
Past History
ED Past Medical History: HTN, Hypercholesterolemia and Psychiatric (Takes Escitalopram 10 mg OD)
ED Past Surgical History: Bowel resection (for diverticulitis)
Social History
Tobacco: Smoker
Alcohol: Chronic alcoholic
Drug: None
Personal:
Living: with family
Employment: Employed
Family History
Family History: Other (n/c)
Review of Systems
Review of Systems
All Other Systems: Not applicable
Constitutional: Reports fatigue
ABD/GI: Reports abdominal pain, nausea and vomiting; Denies bloody stools or black stools
Phy Exam
Physical Exam
Physical Exam:
Physical Exam
General: Looks older than stated age
Neck: Dry lips
Heart: Tachycardic
Lungs: no acute respiratory distress. clear bilaterally
Abdomen: Mild epigastric tender
Neuro: alert and oriented. no focal neurological deficits--Tremulous
Skin: no rash
Psychiatric: Cooperative
Extremities: no edema.
Scores
Withdrawal Assessment of Alcohol
Withdrawal Assessment Completed?: Yes
Nausea and Vomiting: Intermittent nausea with dry heaves
Tactile Disturbances: Mild itching, pins and needles, burning or numbness
Tremor: Moderate, with patient's arms extended
Auditory Disturbances: Very mild harshness or ability to fighten
Paroxysmal Sweats: No sweat visible
Visual Disturbances: Very mild sensitivity
Anxiety: Moderately anxious, or guarded, so anxiety is inferred
Headache, Fullness in Head: Mild
Agitation: Moderately fidgety and restless
Orientation and clouding of sensorium: Oriented and can do serial additions
Total CIWA Score: 22
Alcohol Withdrawal Medication Recommendation: Equal to MSAS >11. Lorazepam 2-4mg IV NOW and re-assess q1hr
Course
Orders/Labs/Results
Orders:
Orders
02/23/25 14:43
Electrocardiogram (*1) Urgent
Reason for Study: Bradycardia / Tachycardia
02/23/25 14:44
EKG- Treatment ONCE
02/23/25 14:52
Complete Blood Count/With Diff Urgent
Comprehensive Metabolic Panel Urgent
Lipase Urgent
Comment: ADD ON
02/23/25 18:48
Pantoprazole [Protonix IV] 40 mg IV NOW STA
diazePAM [Valium Injection] 10 mg IV NOW STA
02/23/25 18:49
Add On- LAB Urgent
Tests Added?: liapse
02/23/25 19:15
Dextrose 5%/Water 1000 ml [D5w] 1,000 ml Sodium Bicarbonate 150 meq IV 250 mls/hr
Abnormal Lab Results
02/23/25
14:52
WBC 11.5 H 10^3/uL
(4.8-10.8)
Hgb 16.2 H g/dL
(12.0-16.0)
MCH 32.0 H pg
(27.0-31.0)
Abs Immat Gran (auto) 0.1 H 10^3/uL
(0-0.05)
Absolute Neuts (auto) 8.9 H 10^3/uL
(1.4-6.5)
Absolute Monos (auto) 1.0 H 10^3/uL
(0.1-0.6)
Neutrophils % 77.7 H %
(42.2-75.2)
Lymphocytes % 12.9 L %
(20.5-51.1)
Sodium 129 L mmol/L
(135-145)
Chloride 90 L mmol/L
(98-107)
Carbon Dioxide 6 L* mmol/L
(22-30)
BUN 28 H mg/dl
(7-17)
Glucose 158 H mg/dl
(70-99)
Total Bilirubin 2.0 H mg/dl
(0.2-1.3)
AST 86 H U/L
(14-36)
ALT 102 H U/L
(0-35)
Total Protein 8.8 H g/dl
(6.3-8.2)
Albumin 5.7 H g/dl
(3.5-5.0)
02/23/25 14:52
02/23/25 14:52
Vital Signs
Initial and Last Documented VS:
Initial Vital Signs
Temp Pulse Resp BP Pulse Ox
98.0 F 120 16 155/87 98
02/23/25 14:40 02/23/25 14:40 02/23/25 14:40 02/23/25 14:40 02/23/25 14:40
Last Documented Vital Signs
Temp Pulse Resp BP Pulse Ox
98.0 F 124 22 150/107 97
02/23/25 14:40 02/23/25 16:57 02/23/25 16:57 02/23/25 16:57 02/23/25 19:07
MDM/Problems Addressed
Differential Diagnosis Includes:
Alcohol withdrawal starvation ketosis alcoholic ketosis delirium tremens pancreatitis
MDM/Problems Addressed:
Nausea vomiting alcohol withdrawal
Chronic conditions affecting care:
Alcohol
Acute Exacerbation and/or Progression of Chronic Illness:
Alcohol
*Pulse Oximetry
SaO2: 97
Oxygen Mode of Delivery: Room air
Patient hypoxic: no
*Critical Care Note
Total Time (30-74mins, 75-104mins- exclusive of procedures): 30
Update Note
Update Note:
Alcoholic ketoacidosis update labs noted patient with alcoholic ketoacidosis will require admission
ED Attending Note
-
Portions of this chart may have been created with voice recognition software.� Occasional wrong word or��sound alike� substitutions may have occurred due to the inherent limitations of voice recognition software.
Discharge Plan
Departure
Patient Disposition: Admit
Date of Disposition: 02/23/25
Time of Disposition: 19:29
Admit to: IMU
Presentation/result/management discussed w/ accepting MD/DO: Hospitalist
Patient with high blood pressure during this ER visit?: Yes
Condition: Fair
Covid-19: Not Applicable
Discharge Problem:
Metabolic acidosis, Alcoholic ketoacidosis
Prescriptions:
No Action
atorvastatin [Lipitor] 40 mg Tablet
40 mg PO DAILY
lisinopril 20 mg Tablet
20 mg PO DAILY
propranolol 20 mg Tablet
20 mg PO DAILY
Patient Comments:
04/23/24-PATIENT DID NOT KNOW THE DIRECTION WERE BID, SHE ONLY BEEN TAKING IT DAILY
escitalopram oxalate [Lexapro] 10 mg Tablet
10 mg PO DAILY
cholecalciferol (vitamin D3) [Vitamin D3] 25 mcg (1,000 unit) Tablet
25 mcg PO DAILY
magnesium oxide 400 mg magnesium Tablet
400 mg PO DAILY
(DME) CBC without diff
See Rx Instructions .Route .MEDSUPPLY Qty: 1 0RF
Rx Instructions:
11/12/2024 - 11/19/2024, result to your PCP
# pancreatitis
(DME) CMP
See Rx Instructions .Route .MEDSUPPLY Qty: 1 0RF
Rx Instructions:
11/12/2024 - 11/19/2024, result to your PCP
# pancreatitis
(DME) magnesium level
See Rx Instructions .Route .MEDSUPPLY Qty: 1 0RF
Rx Instructions:
11/12/2024 - 11/19/2024, result to your PCP
# hypomagnesemia
(DME) lipase
See Rx Instructions .Route .MEDSUPPLY Qty: 1 0RF
Rx Instructions:
11/12/2024 - 11/19/2024, result to your PCP
# pancreatitis
Referrals:
Charisse Pérez CRNP [Family Provider]
Interventions
Interventions:
*General Assessment Last Done: 02/23/25 14:40
*Neglect/Abuse Screening Last Done: 02/23/25 14:40
*ED COVID-19 Vaccine History Last Done: 02/23/25 14:40
*ED Influenza Vaccine History Last Done: 02/23/25 14:40
[facility] Risk Assessment Tool Last Done: 02/23/25 19:25
*Risk Screen - Suicide (C-SSRS) Last Done: 02/23/25 14:40
Discharge Date and Time
Print Language: LAO
[2025-02-23 19:23] LABS: Lipase 184 U/L (23-300)
[2025-02-23 19:24] VITALS: BMI 22.7
[2025-02-23 19:28] VITALS: BP 139/92
[2025-02-23] MEDS: SODIUM BICARBONATE 1150 MEQ IV (19:45)
[2025-02-23] MEDS: VALIUM INJECTION 10 MG IV (19:45)
[2025-02-23] MEDS: PROTONIX IV 40 MG IV (19:45)
[2025-02-23 19:50] VITALS: BP 130/78
--- NOTE | 2025-02-23 19:51 | HPS.HSE ---
Family Physician
-
Family Physician: LATASHA Lux
Chief Complaint
-
Intractable nausea vomiting
History of Present Illness
This is a 66-year-old female with history of chronic alcohol abuse, hypertension, hyperlipidemia, history of prior diverticulitis, depression and tobacco dependence who presents to the emergency department with a nausea vomiting.
Patient has just undergone alcohol rehab with discharge on February 08. She reported that during the alcohol cessation program she did have an episode of sinusitis which was treated with supportive measures. After February 08 she reported that she
did drink alcohol again last week Sunday and Sunday. Then on she started having symptoms. She reported that she had some sinus congestion nonproductive cough as well as some runny nose. She denies fevers chills or headache.
Since then the patient reports she has had intractable nausea and vomiting. Family reported that she has not been taking any p.o. She has attempted to hydrate herself with watered-down Gatorade. She still vomits that. More recently the vomit had
turned dark and that is what brought her into the emergency department.
She is now approximately 5 days since her last alcohol intake. She denies any hallucinations. She denies any tremors.
In the emergency department blood pressure was 150/107 with a pulse rate of 124 and oxygen saturation of 97% on room air. ECG shows a normal sinus rhythm at a rate of 96.
Labs remarkable for white count of 11.5, hemoglobin of 16.2 and plate count of 220. Sodium was 129 bicarb was 6 with a normal BUN and creatinine and a glucose of 158.
Total bilirubin was 2.0 AST 86 ALT 100. Albumin level was 5.7. Anion gap is 30. Lipase is normal. No history of diabetes.
Medical History
Past Medical History
Past Medical History: Reports Other
Additional Past Medical History:
chronic alcohol abuse with history of DTs in the past
Active smoker
Hypomagnesemia
depression
hypertension
hyperlipidemia
diverticulitis status post bowel resection
Past Surgical History: Reports Other
Social History
Tobacco: Smoker (Half a pack a day x 40 years)
Alcohol: Daily (Unable to quantify drinks out of vodka bottle she believes 3 to 4 ounces a day started drinking 11 days ago prior sober date was September 04, 2024)
Drug: None
Personal: Single
Employment: Employed
Family History
Family History: Other (Mother 72 alcoholism, father history of alcohol abuse)
Allergies / Home Medications
Allergies reflects when Allergies were last updated in [employer]
Home Medications with original date entered in [employer]
Allergy/Medication List:
Allergies
Allergy/AdvReac Type Severity Reaction Status Date / Time
No Known Allergies Allergy Verified 04/23/24 10:22
Home Medications
atorvastatin 40 mg tablet (Lipitor) 40 mg PO DAILY High Cholesterol 04/23/24
cholecalciferol (vitamin D3) 25 mcg (1,000 unit) tablet (Vitamin D3) 25 mcg PO DAILY Supplement 04/23/24
escitalopram oxalate 10 mg tablet (Lexapro) 10 mg PO DAILY depression/anxiety 04/23/24
lisinopril 20 mg tablet 20 mg PO DAILY Blood Pressure 04/23/24
magnesium oxide 400 mg PO DAILY Supplement 04/23/24
propranolol 20 mg tablet 20 mg PO DAILY Blood Pressure 04/23/24
Review of Systems
-
Constitutional: Reports No Symptoms
EENT: Reports No Symptoms
Respiratory: Reports No Symptoms
Cardiac: Reports No Symptoms
Abdomen/GI: Reports Nausea and Vomiting
: Reports No Symptoms
Musculoskeletal: Reports No Symptoms
Skin: Reports No Symptoms
Neurological: Reports No Symptoms
Endocrine: Reports No Symptoms
Hematologic/Lymphatic: Reports No Symptoms
Psych: Reports No Symptoms
Physical Exam
Vital Signs
Vital Signs
Temp Pulse Resp BP Pulse Ox
98.0 F 124 22 150/107 97
02/23/25 14:40 02/23/25 16:57 02/23/25 16:57 02/23/25 16:57 02/23/25 19:07
Physical Exam
General: Conversant; No Pain, Fever, Chills or Slurred Speech
HEENT: NormoCephalic, Anicteric, PERRLA, [place] Conjunctivae and Other (Dry oral mucosa, dry rash to lower face with skin peeling)
Respiratory: Clear; No Wheezes, Rales or Rhonchi
Cardiac: S1/S2 and Tachycardia (Sinus 102 bpm); No Murmur, Rub, Gallop or Peripheral Edema
Breast: Deferred by me
GI: Soft, Non Tender, Non Distended and Normal Bowel Sounds
Rectal: Deferred by Provider
Genito-urinary: Deferred by me
Musculoskeletal: No Clubbing, No Cyanosis and No Edema
Skin: Warm and Dry
Neuro: AO x 3, No Motor Deficits, Cranial Nerves Intact and No Sensory Deficits; No Slurred Speech, Facial Droop, Tremors or Sedated
Psych: Calm
Laboratory Results
-
02/23/25 14:52
02/23/25 14:52
Laboratory Results
Total Bilirubin 2.0 mg/dl (0.2-1.3) H 02/23/25 14:52
AST 86 U/L (14-36) H 02/23/25 14:52
ALT 102 U/L (0-35) H 02/23/25 14:52
Alkaline Phosphatase 92 U/L (38-126) 02/23/25 14:52
Lipase 184 U/L (23-300) 02/23/25 14:52
Data Reviewed
-
Lab Data: Labs Reviewed by me
Old Records: Reviewed
Impression/Plan
-
IMPRESSION:
59-year-old female with past medical history of alcohol dependence, hypertension, hyperlipidemia, depression, pancreatitis who presents to the emergency department with approximately 4 days of intractable nausea vomiting and now has dark-colored
emesis. No emesis on my examination of. She last had alcohol about 5 days ago. She is afebrile here. She is on normotensive and tachycardic to 124. ECG is normal sinus. She appears to be hemoconcentrated with hemoglobin of 16.2 and albumin
level of 5.7. Sodium is 129, she is in anion gap acidosis with a bicarb of 6 and anion gap of 30. LFTs were mildly abnormal. BUN and creatinine were stable with a glucose of 150. She has no history of diabetes.
Suspect severe alcoholic ketoacidosis and likely a mixed picture given the intractable nausea and vomiting. She has no diarrhea. She denies abdominal pain but she reports soreness. Cannot rule out gastritis and also possibly diverticulitis.
PLAN:
Anion gap metabolic acidosis -suspect alcoholic ketoacidosis/starvation ketoacidosis. Last alcohol was over 5 days ago. She is not in active withdrawal at this time. She had been in rehab until February 08. She then had 2 days of drinking last
week Sunday and Sunday and has not had any drinks since then. Very unlikely to be in withdrawal. However she has not been eating which portends starvation ketoacidosis. She also is highly highly hemoconcentrated. In addition she has had
nausea and vomiting which is suggestive of a mixed picture. Cannot rule out an infection.
� Admit to [facility] for now
� Will check pH, lactic acid level, beta-hydroxybutyrate
� Will continue with IV dextrose plus bicarb unless pH is greater than 7.2 then we can switch to dextrose plus sodium chloride
� Will continue with thiamine and folate supplementation for now
� MVI
Nausea vomiting�suspect gastritis but cannot rule out acute diverticulitis.
� CT of the abdomen pelvis
� PPI IV twice daily for now
� Famotidine at bedtime
� Antiemetics
�Continue IV fluids
Hypertension
� Patient on propranolol which we will continue for now at 20 mg twice daily
� Hold lisinopril for now
� Continue atorvastatin
Hyponatremia�suspect hypovolemic hyponatremia given hemoconcentration and history of nausea vomiting and no p.o. intake
� Isotonic fluid resuscitation for now
� Check orthostatic vital signs
� Urine sodium and awesome's
DVT prophylaxis�heparin subcu for now
CODE STATUS�full code
[2025-02-23 20:00] VITALS: BP 127/92
[2025-02-23 20:46] LABS: Venous Blood Gas B.E. -5.1 mmol/L (-4 to +4); Venous Blood Gas O2 Sat % 64.6 %
[2025-02-23 20:58] VITALS: BMI 22.7
--- NOTE | 2025-02-23 20:59 | PHANOTE ---
02/23/2025, pt. states to have gotten a [facility] Could not confirm with [facility] or pharmacy records.
[2025-02-23] MEDS: NSS (PRESERVATIVE FREE) 8 ML IV (22:54)
[2025-02-23] MEDS: PEPCID 20 MG IV (22:54)
[2025-02-23 22:55] VITALS: BMI 21.9
[2025-02-23 23:27] VITALS: BP 121/68
[2025-02-23] MEDS: D5/0.9% SODIUM CHLORIDE 1000 IV (23:43)
[2025-02-23] MEDS: HEPARIN 5000 UNITS SC (23:44)
[2025-02-24] MEDS: D5/0.9% SODIUM CHLORIDE 1000 IV ×2 (04:36→09:50)
[2025-02-24 07:10] VITALS: BP 119/80
[2025-02-24 07:29] LABS: Hematocrit 35.3 % (37.0-47.0); Hemoglobin 13.1 g/dL (12.0-16.0); Mean Corp Hgb Conc. 37.1 g/dL (33.0-37.0); Mean Corpuscular Volume 86.5 fL (81.0-99.0); Platelet Count 141 10^3/uL (130-400); Red Cell Dist. Width 12.2 % (11.5-14.5)
[2025-02-24 07:46] LABS: Urine Character Clear (Clear)
[2025-02-24 07:52] LABS: Blood Urea Nitrogen 20 mg/dl (7-17); Calcium 8.8 mg/dl (8.4-10.2); Carbon Dioxide 28 mmol/L (22-30); Chloride 95 mmol/L (98-107); Estimated Creatinine Clearance 80 ml/min; Glucose 156 mg/dl (70-99); Magnesium 1.5 mg/dl (1.6-2.3); Potassium 3.8 mmol/L (3.5-5.1); Sodium 131 mmol/L (135-145); eGFR > 60.00
[2025-02-24 08:43] LABS: Urine Red Blood Cell 0-2 /HPF (0-2)
[2025-02-24 08:44] LABS: Urine Squamous Cell >30 /LPF (Few)
[2025-02-24 08:56] LABS: Folate > 20.0 ng/ml (2.76-20)
[2025-02-24] MEDS: INDERAL 20 MG PO (09:39)
[2025-02-24] MEDS: FOLVITE 1 MG PO (09:39)
[2025-02-24] MEDS: LIPITOR 40 MG PO (09:39)
[2025-02-24] MEDS: NICODERM TRANSDERMAL 14 MG TRANSDERM (09:39)
[2025-02-24] MEDS: THERAGRAN 1 TABLET PO (09:39)
[2025-02-24] MEDS: PROTONIX IV 40 MG IV (09:40)
[2025-02-24] MEDS: HEPARIN 5000 UNITS SC (09:40)
[2025-02-24] MEDS: THIAMINE INJECTION 200 MG IV (09:41)
[2025-02-24] MEDS: NSS (PRESERVATIVE FREE) 10 ML IV (09:41)
--- NOTE | 2025-02-24 11:38 | CM ---
Patient seen at bedside on . Patient states that she lives with her in a 2 story home. Patient stated that she does not wish to return to [facility] and that she does not feel she needs [facility] at this time. Patient stated
that she feels she has an extensive network of AA mentors and supports and has no DME at home or needs at this time. Patient plan is to return to home with follow up with AA. CM will continue to follow for discharge planning needs.
Plan; home with no needs at this time.
[2025-02-24 12:36] LABS: ALT (SGPT) 107 U/L (0-35); AST (SGOT) 102 U/L (14-36); Albumin 4.0 g/dl (3.5-5.0); Alkaline Phosphatase 63 U/L (38-126); Blood Urea Nitrogen 16 mg/dl (7-17); Calcium 8.9 mg/dl (8.4-10.2); Carbon Dioxide 29 mmol/L (22-30); Chloride 98 mmol/L (98-107); Estimated Creatinine Clearance 93 ml/min; Glucose 103 mg/dl (70-99); Potassium 3.4 mmol/L (3.5-5.1); Sodium 132 mmol/L (135-145); Total Protein 6.6 g/dl (6.3-8.2); eGFR > 60.00
[2025-02-24] MEDS: KCL 40 MEQ PO (13:51)
[2025-02-24 15:09] VITALS: BP 120/74
--- NOTE | 2025-03-03 09:03 | W.DCSUMMARY ---
Discharge Summary
Discharge Data
Date of Admission: 02/23/25
Date of Discharge: 02/24/25
-
Pending Results: No
Hospital Course
66-year-old female with history of chronic alcohol abuse, hypertension, hyperlipidemia, history of prior diverticulitis, depression and tobacco dependence
Presented with nausea vomiting after drinking alcohol for 2 days. Likely developed alcohol gastritis which led to nausea vomiting. Subsequently, developed alcohol/starvation ketosis. Started on IV fluids antiemetics with improvement in
symptomatology. Acid-base disturbances resolved. Discussed abstinence from alcohol use verbalized understanding. Noted to have hypokalemia that was repleted.
Was found to have high T. bili LFTs. CT abdomen pelvis showing hepatic steatosis. Will need outpatient GI follow-up/hepatology follow-up.
Seen and and examined the day of 02 24 2025.
States that she is feeling significantly better. No further nausea or vomiting. Improved appetite. Would like to be discharged home
NAD
Scleral Anicteric
MMM
No JVD
CTABL
RRR, S1/S2
Soft, NT, ND, BS+
Warm, Dry
AAOx3
Calm
More than 30 minutes spent in discharge including
Final examination of the patient
Summarizing hospital stay
Instructions for continuing care to all relevant caregivers
Preparation of discharge records, prescriptions, and referral forms
Total time spent (in minutes): 33mins
Discharge Plan
-
Patient Disposition: Home (Routine Discharge)
Discharge Diagnosis/Procedures: Starvation ketosis
Alcohol ketosis
High anion gap metabolic acidosis
Alcohol induced gastritis
Hypokalemia
Condition: Good
Diet: As tolerated, Low Fat, Low Cholesterol, Low Fiber and 2 Gram Sodium
Additional Diets: Abstain from alcohol
Activity: As tolerated
Activity Restrictions/Additional Instructions:
Presented with nausea vomiting after drinking alcohol for 2 days. Likely developed alcohol gastritis which led to nausea vomiting. Subsequently, developed alcohol/starvation ketosis. Started on IV fluids antiemetics with improvement in
symptomatology. Acid-base disturbances resolved. Discussed abstinence from alcohol use verbalized understanding. Noted to have hypokalemia that was repleted.
Was found to have high T. bili LFTs. CT abdomen pelvis showing hepatic steatosis. Will need outpatient GI follow-up/hepatology follow-up.
Referrals:
Charisse Pérez CRNP [Family Provider]
Myron Browne DO [Active, Gastroenterology] - in one to two weeks
Prescriptions:
New
nicotine 14 mg/24 hr Patch 24 Hour
14 mg transdermal DAILY Qty: 30 0RF
folic acid 1 mg Tablet
1 mg PO DAILY Qty: 30 0RF
thiamine HCl (vitamin B1) 100 mg tablet
100 mg PO DAILY Qty: 30 0RF
pantoprazole [Protonix] 40 mg tablet,delayed release (DR/EC)
40 mg PO BID Qty: 60 0RF
sucralfate [Carafate] 1 gram tablet
1 g PO BID Qty: 60 0RF
Continued
atorvastatin [Lipitor] 40 mg Tablet
40 mg PO DAILY
lisinopril 20 mg Tablet
20 mg PO DAILY
escitalopram oxalate [Lexapro] 10 mg Tablet
10 mg PO DAILY
pantoprazole 40 mg Tablet,Delayed Release (Dr/Ec)
40 mg PO DAILY
Vitamin B3
1 cap PO DAILY
propranolol 60 mg Capsule,Extended Release 24 Hr
60 mg PO DAILY
Patient Comments:
02/23/2025, [facility]
Discharge Orders:
Discharge Patient (As Directed); Ordered 02/24/25
Ordered By: Renny De La Cruz
Discharge Date and Time
Discharge Date/Time: 02/24/25 15:19
Print Language: RUSSIAN
== END 2025-02-24 15:19 | disposition home or self-care (01) | DRG 641 ==
LOC: 2 NORTH 20:58
PROVIDERS: Emergency Medicine; ADMITTING PHYSICIAN Internal Medicine; ATTENDING PHYSICIAN Hospitalist; EMERGENCY PHYSICIAN Emergency Medicine; FAMILY PHYSICIAN Nurse Practitioner Primary Care
DX: E87.29 Other acidosis (principal); K57.32 Diverticulitis of large intestine without perforation or abscess without bleeding; E87.1 Hypo-osmolality and hyponatremia; T73.0XXA Starvation, initial encounter; K29.20 Alcoholic gastritis without bleeding; F10.20 Alcohol dependence, uncomplicated; R11.2 Nausea with vomiting, unspecified; X58.XXXA Exposure to other specified factors, initial encounter; E78.00 Pure hypercholesterolemia, unspecified; I10 Essential (primary) hypertension; E87.6 Hypokalemia; K76.0 Fatty (change of) liver, not elsewhere classified; F17.200 Nicotine dependence, unspecified, uncomplicated; F32.A Depression, unspecified; E83.42 Hypomagnesemia; Z63.72 Alcoholism and drug addiction in family; Z81.1 Family history of alcohol abuse and dependence; Z87.19 Personal history of other diseases of the digestive system; Z90.49 Acquired absence of other specified parts of digestive tract
CPT/HCPCS: 74177; 80048; 80053; 81003; 81015; 82010; 82077; 82746; 82805; 83605; 83690; 83735; 83935; 84300; 85025; 85027; 87086; 93005; 96374; 96375; 99291; Q9967